=== PATIENT | female | born 1970 | race African-American/Black ===

== ENCOUNTER 2019-05-07 18:52 | Inpatient (IN) | payer BC, OTHER ==
[2019-05-07] MEDS ORDERED: SODIUM CHLORIDE 0.9% 500 ML 500 ML IV STA (20:41)
[2019-05-07] MEDS ORDERED: KETOROLAC 30 MG/ML 1 ML VIAL IVP STA (20:41)
[2019-05-07 20:47] LABS: Appearance,Urine Clear (Clear); Bilirubin,Urine Negative (Negative); Blood,Urine Negative (Negative); Color,Urine Colorless; Glucose,Urine (UA) Negative (Negative); Ketones,Urine Negative (Negative); Leukocyte Esterase,Urine Negative (Negative); Nitrite,Urine Negative (Negative); PH, Urine 5.5 (5.0-8.0); Protein,Urine Negative (Negative); Specific Gravity,Urine 1.003 (1.001-1.035); Urobilinogen,Urine <2.0 mg/dL (<2.0)
--- NOTE | 2019-05-07 20:56 | ED ---
General Adult HPI - General Chief complaint: Urogenital Stated complaint: Poss UTI or kidney infection Time Seen by Provider: 05/07/19 20:11 Source: patient, RN notes reviewed Mode of arrival: ambulatory Limitations: no limitations - History of Present Illness Initial comments: 49-year-old female without any significant past medical history presents to the emergency department for right flank pain 4 days. States that she was seen at urgent care at that time and diagnosed with a urinary tract infection secondary to having blood in her urine and started on Bactrim. States that this has not helped with her pain. Patient denies any dysuria or suprapubic pain or pressure. Denies fevers or chills. Does admit to right flank pain that comes and goes. States when she is working this worsens her pain.Patient has no other complaints at this time including shortness of breath, chest pain, abdominal pain, nausea or vomiting, headache, or visual changes. - Related Data Previous Rx's Medication Instructions Recorded Ibuprofen [Motrin] 600 mg PO Q6HR PRN #20 tab 07/04/14 Allergies Allergy/AdvReac Type Severity Reaction Status Date / Time peanut Allergy Rash/Hives Verified 05/07/19 19:00 wheat Allergy Abdominal Verified 05/07/19 19:00 Pain Review of Systems ROS Statement: Those systems with pertinent positive or pertinent negative responses have been documented in the HPI. ROS Other: All systems not noted in ROS Statement are negative. Past Medical History Past Medical History: No Reported History History of Any Multi-Drug Resistant Organisms: None Reported Past Surgical History: No Surgical Hx Reported Past Psychological History: No Psychological Hx Reported Smoking Status: Former smoker Past Alcohol Use History: Occasional Past Drug Use History: None Reported General Exam Limitations: no limitations General appearance: alert, in no apparent distress Head exam: Present: atraumatic, normocephalic, normal inspection Eye exam: Present: normal appearance, PERRL, EOMI. Absent: scleral icterus, conjunctival injection, periorbital swelling ENT exam: Present: normal exam, mucous membranes moist Neck exam: Present: normal inspection, full ROM. Absent: tenderness, meningismus, lymphadenopathy Respiratory exam: Present: normal lung sounds bilaterally. Absent: respiratory distress, wheezes, rales, rhonchi, stridor Cardiovascular Exam: Present: regular rate, normal rhythm, normal heart sounds. Absent: systolic murmur, diastolic murmur, rubs, gallop, clicks GI/Abdominal exam: Present: soft, normal bowel sounds. Absent: distended, tende rness, guarding, rebound, rigid Back exam: Absent: CVA tenderness (R), CVA tenderness (L), vertebral tenderness Course Vital Signs 05/07/19 05/07/19 18:57 22:45 Temperature 98 F 98 F Pulse Rate 79 68 Respiratory 18 18 Rate Blood Pressure 156/77 129/72 O2 Sat by Pulse 100 100 Oximetry Medical Decision Making - Medical Decision Making Vitals are stable. However CBC did reveal hemoglobin of 6.3. This was repeated and is now 6.5. At this time unclear what source of anemia is. Does admit she has a history of mild anemia however past hemoglobins have been in normal limits. Patient admits to some history of mild anemia for which she takes vitamin D. States that she had her last period on April 21 and it was not heavy in nature. No current vaginal bleeding. Denies any rectal bleeding, melena, hematochezia. Denies hematemesis. Patient was ordered a unit of packed red blood cells. CMP unremarkable. Urine was negative. CT was obtained which showed an enlarged multilobulated uterus and periumbilical fullness, no kidney stone. Patient will be admitted, agrees with this. - Lab Data Result diagrams: 05/07/19 22:00 05/07/19 20:50 Lab Results 05/07/19 05/07/19 05/07/19 Range/Units 20:22 20:22 20:50 WBC (3.8-10.6) k/uL RBC (3.80-5.40) m/uL Hgb (11.4-16.0) gm/dL Hct (34.0-46.0) % MCV (80.0-100.0) fL MCH (25.0-35.0) pg MCHC (31.0-37.0) g/dL RDW (11.5-15.5) % Plt Count (150-450) k/uL Neutrophils % % Lymphocytes % % Monocytes % % Eosinophils % % Basophils % % Neutrophils # (1.3-7.7) k/uL Lymphocytes # (1.0-4.8) k/uL Monocytes # (0-1.0) k/uL Eosinophils # (0-0.7) k/uL Basophils # (0-0.2) k/uL Hypochromasia Poikilocytosis Anisocytosis Microcytosis Sodium 135 L (137-145) mmol/L Potassium 3.7 (3.5-5.1) mmol/L Chloride 103 (98-107) mmol/L Carbon Dioxide 21 L (22-30) mmol/L Anion Gap 11 mmol/L BUN 8 (7-17) mg/dL Creatinine 0.86 (0.52-1.04) mg/dL Est GFR (CKD-EPI)AfAm >90 (>60 ml/min/1.73 sqM) Est GFR (CKD-EPI)NonAf 80 (>60 ml/min/1.73 sqM) Glucose 83 (74-99) mg/dL Calcium 11.0 H (8.4-10.2) mg/dL Total Bilirubin 0.5 (0.2-1.3) mg/dL AST 20 (14-36) U/L ALT 15 (9-52) U/L Alkaline Phosphatase 50 (38-126) U/L Total Protein 7.6 (6.3-8.2) g/dL Albumin 4.3 (3.5-5.0) g/dL Amylase 57 (30-110) U/L Lipase 106 (23-300) U/L Urine Color Colorless Urine Appearance Clear (Clear) Urine pH 5.5 (5.0-8.0) Ur Specific [place] 1.003 (1.001-1.035) Urine Protein Negative (Negative) Urine Glucose (UA) Negative (Negative) Urine Ketones Negative (Negative) Urine Blood Negative (Negative) Urine Nitrite Negative (Negative) Urine Bilirubin Negative (Negative) Urine Urobilinogen <2.0 (<2.0) mg/dL Ur Leukocyte Esterase Negative (Negative) Urine HCG, Qual Not Detected (Not Detectd) Blood Type Recheck Bld Type Recheck Status Spec Expiration Date 05/07/19 05/07/19 05/07/19 Range/Units 20:50 22:00 22:05 WBC 6.7 6.2 (3.8-10.6) k/uL RBC 3.16 L 3.12 L (3.80-5.40) m/uL Hgb 6.3 L* 6.5 L* (11.4-16.0) gm/dL Hct 23.5 L 23.4 L (34.0-46.0) % MCV 74.3 L 75.0 L (80.0-100.0) fL MCH 19.9 L 20.9 L (25.0-35.0) pg MCHC 26.7 L 27.8 L (31.0-37.0) g/dL RDW 17.1 H 17.3 H (11.5-15.5) % Plt Count 514 H 467 H (150-450) k/uL Neutrophils % 75 75 % Lymphocytes % 17 16 % Monocytes % 4 5 % Eosinophils % 1 1 % Basophils % 1 1 % Neutrophils # 5.1 4.6 (1.3-7.7) k/uL Lymphocytes # 1.1 1.0 (1.0-4.8) k/uL Monocytes # 0.3 0.3 (0-1.0) k/uL Eosinophils # 0.0 0.1 (0-0.7) k/uL Basophils # 0.1 0.1 (0-0.2) k/uL Hypochromasia Marked Marked Poikilocytosis Slight Slight Anisocytosis Slight Slight Microcytosis Moderate Slight Sodium (137-145) mmol/L Potassium (3.5-5.1) mmol/L Chloride (98-107) mmol/L Carbon Dioxide (22-30) mmol/L Anion Gap mmol/L BUN (7-17) mg/dL Creatinine (0.52-1.04) mg/dL Est GFR (CKD-EPI)AfAm (>60 ml/min/1.73 sqM) Est GFR (CKD-EPI)NonAf (>60 ml/min/1.73 sqM) Glucose (74-99) mg/dL Calcium (8.4-10.2) mg/dL Total Bilirubin (0.2-1.3) mg/dL AST (14-36) U/L ALT (9-52) U/L Alkaline Phosphatase (38-126) U/L Total Protein (6.3-8.2) g/dL Albumin (3.5-5.0) g/dL Amylase (30-110) U/L Lipase (23-300) U/L Urine Color Urine Appearance (Clear) Urine pH (5.0-8.0) Ur Specific [place] (1.001-1.035) Urine Protein (Negative) Urine Glucose (UA) (Negative) Urine Ketones (Negative) Urine Blood (Negative) Urine Nitrite (Negative) Urine Bilirubin (Negative) Urine Urobilinogen (<2.0) mg/dL Ur Leukocyte Esterase (Negative) Urine HCG, Qual (Not Detectd) Blood Type Recheck No Previous Record Bld Type Recheck Status CABO Indicated Spec Expiration Date 05/10/2019 - 2304 Disposition Clinical Impression: Anemia Disposition: ADMITTED IP TO THIS HOSP Condition: Fair Is patient prescribed a controlled substance at d/c from ED?: No Referrals: Allan Ramirez MD [Primary Care Provider] - 1-2 days Time of Disposition: 22:52
[2019-05-07 21:14] LABS: ALT 15 U/L (9-52); AST 20 U/L (14-36); African American GFR (CKD) >90 (>60 ml/min/1.73 sqM); Albumin 4.3 g/dL (3.5-5.0); Alkaline Phosphatase 50 U/L (38-126); Amylase 57 U/L (30-110); Anion Gap 11 mmol/L; Blood Urea Nitrogen 8 mg/dL (7-17); Carbon Dioxide 21 mmol/L (22-30); Chloride 103 mmol/L (98-107); Glucose 83 mg/dL (74-99); Non-African American GFR(CKD) 80 (>60 ml/min/1.73 sqM); Potassium 3.7 mmol/L (3.5-5.1); Sodium 135 mmol/L (137-145); Total Bilirubin 0.5 mg/dL (0.2-1.3); Total Protein 7.6 g/dL (6.3-8.2)
[2019-05-07 21:33] LABS: Anisocytosis Slight; Basophils # (A) 0.1 k/uL (0-0.2); Basophils % (A) 1 %; Eosinophils % (A) 1 %; HCT 23.5 % (34.0-46.0); Hypochromasia Marked; Lymphocytes # (A) 1.1 k/uL (1.0-4.8); Lymphocytes % (A) 17 %; MCH 19.9 pg (25.0-35.0); MCHC 26.7 g/dL (31.0-37.0); MCV 74.3 fL (80.0-100.0); Mean Platelet Volume 6.8; Microcytosis Moderate; Monocytes # (A) 0.3 k/uL (0-1.0); Monocytes % (A) 4 %; Neutrophils # (A) 5.1 k/uL (1.3-7.7); Neutrophils % (A) 75 %; Platelet Count 514 k/uL (150-450); Poikilocytosis Slight; RBC 3.16 m/uL (3.80-5.40); RDW 17.1 % (11.5-15.5); WBC 6.7 k/uL (3.8-10.6)
[2019-05-07 21:36] LABS: HGB 6.3 gm/dL (11.4-16.0)
--- NOTE | 2019-05-07 21:52 | CT ---
EXAMINATION TYPE: CT abdomen pelvis w con DATE OF EXAM: 05/07/2019 COMPARISON: None HISTORY: right flank pain CT DLP: 568.5 mGycm Automated exposure control for dose reduction was used. TECHNIQUE: Helical acquisition of images was performed from the lung bases through the pelvis. CONTRAST: Performed without Oral Contrast and with IV Contrast, patient injected with 100 mL of Isovu e 300. FINDINGS: LUNG BASES: No significant abnormality is appreciated. LIVER/GB: No significant abnormality is appreciated. PANCREAS: No significant abnormality is seen. SPLEEN: No significant abnormality is seen. ADRENALS: No significant abnormality is seen. KIDNEYS: No significant abnormality is seen. FREE AIR: No free air is visualized. RETROPERITONEAL ADENOPATHY: None visualized REPRODUCTIVE ORGANS: The uterus is very multilobulated, consistent with leiomyomata, and measures 14 x 10 x 8 cm. The right ovary is lowly-positioned at the underside of the uterus, whereas the left ova ry is high atop the uterus. URINARY BLADDER: No significant abnormality is seen. PELVIC ADENOPATHY: None visualized. OSSEOUS STRUCTURES: No significant abnormality is seen. BOWEL: No significant abnormality is seen. Appendix is negative. VASCULATURE: Unremarkable. OTHER: There is periumbilical fullness, with a small bowel loop reaching a position partially 1 cm fr om the skin surface. No cadence herniation. IMPRESSION: 1. ENLARGED MULTILOBULATED UTERUS. 2. PERIUMBILICAL FULLNESS DISCUSSED.
[2019-05-07 22:26] LABS: Anisocytosis Slight; Basophils # (A) 0.1 k/uL (0-0.2); Basophils % (A) 1 %; Eosinophils # (A) 0.1 k/uL (0-0.7); Eosinophils % (A) 1 %; HCT 23.4 % (34.0-46.0); Hypochromasia Marked; Lymphocytes % (A) 16 %; MCH 20.9 pg (25.0-35.0); MCHC 27.8 g/dL (31.0-37.0); Mean Platelet Volume 6.5; Microcytosis Slight; Monocytes # (A) 0.3 k/uL (0-1.0); Monocytes % (A) 5 %; Neutrophils # (A) 4.6 k/uL (1.3-7.7); Neutrophils % (A) 75 %; Platelet Count 467 k/uL (150-450); Poikilocytosis Slight; RBC 3.12 m/uL (3.80-5.40); RDW 17.3 % (11.5-15.5); WBC 6.2 k/uL (3.8-10.6)
[2019-05-07 22:40] LABS: HGB 6.5 gm/dL (11.4-16.0)
[2019-05-07] MEDS ORDERED: NALOXONE 0.4 MG/ML 1 ML VIAL IV PRN (22:49)
[2019-05-07] MEDS ORDERED: MORPHINE SULFATE 2 MG/ML SYRINGE IV PRN (22:49)
[2019-05-07] MEDS ORDERED: ONDANSETRON 4 MG/2 ML VIAL IVP PRN (22:49)
[2019-05-07] MEDS ORDERED: SODIUM CHLORIDE 0.9% 1,000 ML IV SCH (23:00)
[2019-05-08 08:58] LABS: Anisocytosis Slight; Basophils # (A) 0.1 k/uL (0-0.2); Basophils % (A) 1 %; Eosinophils % (A) 1 %; HCT 24.7 % (34.0-46.0); HGB 7.3 gm/dL (11.4-16.0); Hypochromasia Marked; Lymphocytes % (A) 20 %; MCH 22.7 pg (25.0-35.0); MCHC 29.5 g/dL (31.0-37.0); MCV 76.8 fL (80.0-100.0); Mean Platelet Volume 7.1; Microcytosis Slight; Monocytes # (A) 0.4 k/uL (0-1.0); Monocytes % (A) 8 %; Neutrophils # (A) 3.3 k/uL (1.3-7.7); Neutrophils % (A) 67 %; Platelet Count 426 k/uL (150-450); Poikilocytosis Moderate; RBC 3.22 m/uL (3.80-5.40); RDW 16.9 % (11.5-15.5); WBC 4.9 k/uL (3.8-10.6)
[2019-05-08 11:30] LABS: INR 0.9 (<1.2); Prothrombin Time 10.2 sec (9.0-12.0)
[2019-05-08 11:33] LABS: Partial Thromboplastin Time 20.2 sec (22.0-30.0)
[2019-05-08] MEDS: ENOXAPARIN 40 MG/0.4 ML SYRINGE SQ SCH (13:15)
[2019-05-08] MEDS: LACTATED RINGERS 1,000 ML IV SCH ×2 (13:15→20:46)
[2019-05-08] MEDS ORDERED: PEG 3350-NA SULF,BICARB,CL/KCL 4,000 ML BOTTLE PO ONE (17:00)
--- NOTE | 2019-05-08 18:27 | CONS ---
CONSULTATION REASON FOR CONSULTATION: Severe symptomatic anemia. HISTORY OF PRESENT ILLNESS: The patient is a 49-year-old female admitted to the hospital because of fatigue, weakness, and some right-sided abdominal pain for the last 1 week duration. She came to the emergency room and she was noted to have severe symptomatic anemia with a hemoglobin of 6.5 g/dL and received 2 units of blood transfusion. The patient denies any abdominal pain. No nausea, vomiting. She usually takes 1 or 2 Aleve on a regular basis for arthritis symptoms. She has noted some constipation for the last few months. Her mother was diagnosed with colon cancer at age 71. She never had any EGD or colonoscopy in the past. No prior history of peptic ulcer disease or recent NSAID use. She still has her regular periods, but denies any menorrhagia. She states that her last menstrual cycle was slightly prolonged, but she does not think she had heavy bleeding or clots. PAST MEDICAL HISTORY: None. MEDICATIONS: Prior to hospitalization, Aleve as needed. ALLERGIES: No known drug allergies. SOCIAL HISTORY: Former smoker. No alcohol use. FAMILY HISTORY: Mother was diagnosed with colon cancer at age 71. PAST SURGICAL HISTORY: Unremarkable. REVIEW OF SYSTEMS: CARDIOPULMONARY: She denies any chest pain, shortness of breath. No dysuria hematuria. MUSCULOSKELETAL unremarkable. SKIN unremarkable. ENDOCRINE unremarkable. PSYCHIATRIC unremarkable. NEUROLOGY unremarkable. ENT/vision unremarkable. CONSTITUTIONAL: No recent weight loss. No fevers, chills, night sweats. GI as mentioned above. HEMATOLOGY: Severe symptomatic anemia. ENDOCRINE unremarkable. PHYSICAL EXAMINATION: She appears comfortable. No apparent distress. Vital signs stable. Blood pressure is 132/86, pulse rate 68, temperature 98.4. HEENT examination unremarkable. Conjunctivae pink. Sclerae anicteric. Oral cavity no lesions. NECK: No JVD or lymph node enlargement. CHEST: Clear to auscultation. HEART: Regular rate and rhythm. ABDOMEN: Soft. Bowel sounds are positive. No organomegaly. EXTREMITIES: No pedal edema. SKIN no rashes. NEUROLOGIC: Alert and oriented x3. No focal deficits. LABS: WBC 6.7, hemoglobin 6.3, platelets 514, MCV 74. INR 0.9. Basic metabolic panel is within normal limits. IMPRESSION: Severe symptomatic microcytic hypochromic anemia with a hemoglobin of 6.5, consistent with iron deficiency anemia most likely related to occult gastrointestinal blood loss. The patient denies any specific gastrointestinal symptoms other than occasional right- sided abdominal pain and some constipation. She denies any menorrhagia. She did have a CT of the abdomen and pelvis done yesterday that showed a multilobulated uterus suggestive of uterine fibroids. She does have family history of colon cancer diagnosed in her mother at age 71. RECOMMENDATIONS: 1. We will proceed with an EGD colonoscopy tomorrow. I discussed with the patient risks, benefits, and complications of procedure and she is agreeable to it. 2. In the meantime, monitor CBC on a daily basis. 3. Avoid NSAIDs. 4. Further recommendations will follow based on the endoscopy results. Thank you for this consultation. MMODL / IJN: [id number] /
[2019-05-08 18:53] LABS: Ferritin 3.4 ng/mL (10.0-291.0); Iron Saturation 1.9 (12.00-45.00)
--- NOTE | 2019-05-08 20:30 | P.HPIM ---
History of Present Illness H&P Date: 05/08/19 Chief Complaint: Right flank pain History of presenting complaint: This is a pleasant 49-year-old patient of Dr. Allan Ramirez. 3 days ago patient developed right flank pain with some pain shooting hiatal. Patient had some associated chills. No fever as such. No nausea vomiting. Patient went out to the urgent care. She was told she has some blood in her urine. Was prescribed Bactrim. Today for couple of days but without much help. Decided to come into the ER. Patient's out of her hemoglobin was 6.9. Was given a unit of blood. Patient denies any dark or black stools. Her last menstrual period was heavy. Otherwise is regular. Patient not had any female genitourinary checkup and last few years. Patient does has no gross hematuria. Rest for the patient this morning. No further flank pain. No fever no chills. No urinary symptoms. Computed tomography scan done in the ER did not show any obvious stone. Review of systems: GEN.: Chills EYES: None HEENT: None NECK: None RESPIRATORY: None CARDIOVASCULAR: None GASTROINTESTINAL: None GENITOURINARY: as above MUSCULOSKELETAL: None LYMPHATICS: None HEMATOLOGICAL: None PSYCHIATRY: None NEUROLOGICAL: None Past medical history: Unremarkable Social history: . Works in aerospace quality engineer. No smoking or cord. No recreational drugs. Family history: Reviewed, noncontributory to presentation Physical examination: VITAL SIGNS: 98, 79, 18, 129/72, 100% room air GENERAL: BMI 23.4, sitting up blood in distress. EYES: Pupils equal. Conjunctiva normal. HEENT: External appearance of nose and ears normal, oral cavity grossly normal. NECK: JVD not raised; masses not palpable. HEART: First and second heart sounds are normal; no edema. LUNGS: Respiratory rate normal; clear to auscultation. ABDOMEN: Soft, nontender, liver spleen not palpable, no masses palpable. PSYCH: Alert and oriented x3; mood and affect normal. NEUROLOGICAL: Cranial nerves grossly intact; no facial asymmetry, power and sensation grossly intact. LYMPHATICS: No lymph nodes palpable in the axilla and neck INVESTIGATIONS, reviewed in the clinical context: White count 6.7 hemoglobin 6.3 platelets 514 progression 3.7 Creatinine 0.86 iron 9 TIBC high at 433-saturation low at 1.9 ferritin low at 3.4 CT abdomen-enlarged uterus, with findings of leiomyoma Assessment: -Acute right flank pain, in a patient with chills with suspect underlying early polynephritis. Patient had a urine tested as an outpatient but did show some blood in it. Patient was at 2 days of antibiotics that is Bactrim. That could possibly make her current urine negative. It is possible she has a right kidney radiolucent stone. -Acute symptomatic microcytic anemia with iron deficiency. This could be from menorrhagia, need to be rule out GI bleed. -Uterine leiomyoma, to follow-up with [facility] Plan: Given the history of a lump at least put the patient 1 day of IV ceftriaxone. GI was consulted. Dr. Victoria saw the patient, this afternoon. and decided to proceed with EGD and colonoscopy. Discussed with the patient. We'll follow up with [facility] as an outpatient. Did receive a unit of blood earlier. Care was discussed with the patient. Questions answered. Past Medical History Past Medical History: No Reported History History of Any Multi-Drug Resistant Organisms: None Reported Past Surgical History: No Surgical Hx Reported Past Psychological History: No Psychological Hx Reported Smoking Status: Former smoker Past Alcohol Use History: Occasional Past Drug Use History: None Reported Medications and Allergies Home Medications Medication Instructions Recorded Confirmed Type Cefuroxime Axetil [Ceftin] 500 mg PO BID #10 tab 05/08/19 Rx Cetirizine HCl [Zyrtec] 10 mg PO DAILY 05/08/19 05/08/19 History Allergies Allergy/AdvReac Type Severity Reaction Status Date / Time peanut Allergy Rash/Hives Verified 05/07/19 19:00 wheat Allergy Abdominal Verified 05/07/19 19:00 Pain Physical Exam Vitals: Vital Signs Temp Pulse Resp BP Pulse Ox 05/07/19 22:45 98 F 68 18 129/72 100 05/07/19 18:57 98 F 79 18 156/77 100 Intake and Output 05/07/19 05/08/19 05/08/19 22:59 06:59 14:59 Other: Voiding Method Toilet Weight 58.06 kg Results CBC & Chem 7: 05/08/19 07:58 05/07/19 20:50 Labs: Abnormal Lab Results - Last 24 Hours (Table) 05/07/19 05/07/19 05/07/19 Range/Units 20:50 20:50 22:00 RBC 3.16 L 3.12 L (3.80-5.40) m/uL Hgb 6.3 L* 6.5 L* (11.4-16.0) gm/dL Hct 23.5 L 23.4 L (34.0-46.0) % MCV 74.3 L 75.0 L (80.0-100.0) fL MCH 19.9 L 20.9 L (25.0-35.0) pg MCHC 26.7 L 27.8 L (31.0-37.0) g/dL RDW 17.1 H 17.3 H (11.5-15.5) % Plt Count 514 H 467 H (150-450) k/uL Sodium 135 L (137-145) mmol/L Carbon Dioxide 21 L (22-30) mmol/L Calcium 11.0 H (8.4-10.2) mg/dL Crossmatch 05/07/19 05/08/19 Range/Units 22:05 07:58 RBC 3.22 L (3.80-5.40) m/uL Hgb 7.3 L (11.4-16.0) gm/dL Hct 24.7 L (34.0-46.0) % MCV 76.8 L (80.0-100.0) fL MCH 22.7 L (25.0-35.0) pg MCHC 29.5 L (31.0-37.0) g/dL RDW 16.9 H (11.5-15.5) % Plt Count (150-450) k/uL Sodium (137-145) mmol/L Carbon Dioxide (22-30) mmol/L Calcium (8.4-10.2) mg/dL Crossmatch See Detail
[2019-05-08] MEDS: ACETAMINOPHEN TAB 325 MG TAB PO PRN (20:51)
[2019-05-09] MEDS: ACETAMINOPHEN TAB 325 MG TAB PO PRN (01:01)
[2019-05-09 04:38] VITALS: RESP 16
[2019-05-09] MEDS: LACTATED RINGERS 1,000 ML IV SCH (06:04)
[2019-05-09 09:27] LABS: Anisocytosis Slight; HCT 23.8 % (34.0-46.0); Hypochromasia Marked; MCH 21.6 pg (25.0-35.0); MCHC 28.2 g/dL (31.0-37.0); MCV 76.8 fL (80.0-100.0); Mean Platelet Volume 7.1; Microcytosis Slight; Platelet Count 412 k/uL (150-450); Poikilocytosis Moderate; RDW 17.3 % (11.5-15.5); WBC 3.7 k/uL (3.8-10.6)
[2019-05-09] MEDS: ENOXAPARIN 40 MG/0.4 ML SYRINGE SQ SCH (09:28)
[2019-05-09 09:39] LABS: HGB 6.7 gm/dL (11.4-16.0)
[2019-05-09] MEDS ORDERED: LIDOCAINE 1% INJ 10MG/ML (20 ML MDV) ONE (12:19)
[2019-05-09] MEDS ORDERED: PROPOFOL 10 MG/ML 20 ML VIAL IV ONE (12:19)
[2019-05-09] MEDS ORDERED: IV FLUID CONTINUATION 500 ML IV ONE (12:26)
[2019-05-09] MEDS ORDERED: PANTOPRAZOLE 40 MG TABLET PO STA (12:44)
--- NOTE | 2019-05-09 12:44 | P.PCN ---
Date of Procedure: 05/09/19 Procedure(s) Performed: Brief history: Patient is a pleasant 49-year-old female, scheduled for an elective upper endoscopy as well as colonoscopy as a part of evaluation of I deficiency anemia. She was admitted hospital with severe symptomatic anemia and hemoglobin of 6.5 g/dL and severe microcytosis. She takes Aleve on a regular basis. She denies any GI bleed. Procedure performed: Esophagogastroduodenoscopy with biopsy Colonoscopy Preoperative diagnosis: Severe symptomatic microcytic anemia Anesthesia: MAC Procedure: After informed consent was obtained from the patient was brought into the endoscopy unit and IV sedation was administered by anesthesia under continuous monitoring. Initially upper endoscopy was done. The Olympus GF 160 video endoscope was inserted inserted into the mouth and esophagus intubated without any difficulty and was gradually advanced into the stomach and duodenum and carefully examined. The bulb and second part of the duodenum appeared normal. Abscesses were done from the duodenum to rule out celiac disease. The scope was then withdrawn into the stomach adequately insufflated with air and upon careful examination the antrum had several erosions and 2 small deep ulcerations and multiple biopsies were done from this area. The body, cardia and fundus appeared normal. The scope was then withdrawn into the esophagus. The GE junction was located at 40 cm to the incisors. Small sliding type hiatal hernia noted. It appeared regular with no erythema erosions or ulcerations. Rest of the esophagus appeared normal. Patient tolerated the procedure well. At this time the patient continued to remain sedation. Initial digital rectal examination was normal. Olympus CF 160 video colonoscope was th erted into the rectum and gradually advanced to the cecum without any difficulty. Careful examination was performed as the scope was gradually being withdrawn. The prep was excellent. The cecum, ascending colon, transverse colon, descending colon, sigmoid colon and rectum appeared normal. Retroflexion was performed in the rectum and no lesions were noted. Patient tolerated the procedure well. Impression: 1. Upper endoscopy revealed 2 small deep antral ulcerations measuring 5 and 6 cm in size with severe antral erosive gastritis and small hiatal hernia 2. Colonoscopy was essentially within normal limits with no evidence of colitis or colorectal neoplasia Recommendations: Findings of this examination were discussed with the patient as well as her family. She was advised to avoid NSAIDs. She'll be started on Protonix 40 mg daily and iron supplements 1 tablet twice daily. Diet will be advanced as nadege ated.]
[2019-05-09 13:10] LABS: Haptoglobin 65.3 mg/dL (31.2-198.0)
[2019-05-09 13:20] VITALS: BP 133/85; PULSE 74; TEMP 98.3
--- NOTE | 2019-05-09 23:23 | P.DS ---
Providers Date of admission: 05/07/19 22:54 Expected date of discharge: 05/09/19 Attending physician: Pavel Son Consults: 05/08/19 07:41 Consult Physician Routine Consulting Provider: Alexis Vergara Consult Reason/Comments: Low HGB Do you want consulting provider notified?: Yes Primary care physician: Allan Ramirez [place] Hospital Course: Chief Complaint: Right flank pain Hospital course: This is a pleasant 49-year-old patient of Dr. Allan Ramirez. 3 days ago patient developed right flank pain with some pain shooting hiatal. Patient had some associated chills. No fever as such. No nausea vomiting. Patient went out to the urgent care. She was told she has some blood in her urine. Was prescribed Bactrim. Today for couple of days but without much help. Decided to come into the ER. Patient's out of her hemoglobin was 6.9. Was given a unit of blood. Patient denies any dark or black stools. Her last menstrual period was heavy. Otherwise is regular. Patient not had any female genitourinary checkup and last few years. Patient does has no gross hematuria. Rest for the patient this morning. No further flank pain. No fever no chills. No urinary symptoms. Computed tomography scan done in the ER did not show any obvious stone. Patient is empirically treated for maybe low-grade pyelonephritis. It may be noted that patient had no white count or fever. Patient's initial hemoglobin was 6.3. Patient was given 2 units of blood. Hemoglobin did come up to 6.7. EGD was done by Dr. Victoria. Found to have severe antral erosive gastritis and small hiatal hernia. Also 2 small deep antral ulcerations. Patient does take NSAIDs. [place] to be responsible for the same. Patient will follow with Dr. Marcin Stephens in the office. If need be that she'll follow-up with hematology. She also told to follow with gynecology for her enlarged uterus. Care was discussed at length with the patient today and with Dr. Marcin Stephens. Discussion and discharge planning more than 35 minutes Consultation: Dr. Marcin Stephens from GI Physical examination: VITAL SIGNS: 98.3, 74, 60, 133 bradycardia 5, 100% room air GENERAL: Sitting up, comfortable. EYES: Pupils equal. Conjunctiva pale HEENT: External appearance of nose and ears normal, oral cavity grossly normal. NECK: JVD not raised; masses not palpable. HEART: First and second heart sounds are normal; no edema. LUNGS: Respiratory rate normal; clear to auscultation. ABDOMEN: Soft, nontender, liver spleen not palpable, no masses palpable. PSYCH: Alert and oriented x3; mood and affect normal. INVESTIGATIONS, reviewed in the clinical context: Hemoglobin 6.7 White count 6.7 hemoglobin 6.3 platelets 514 potassium 3.7 Creatinine 0.86 iron 9 TIBC high at 433-saturation low at 1.9 ferritin low at 3.4 CT abdomen-enlarged uterus, with findings of leiomyoma Discharge diagnosis: -Acute right flank pain, in a patient with chills with suspect underlying early polynephritis. Patient had a urine tested as an outpatient but did show some blood in it. Patient was at 2 days of antibiotics that is Bactrim. That could possibly make her current urine negative. It is possible she has a right kidney radiolucent stone. -Acute symptomatic microcytic anemia with iron deficiency. -Requiring 2 units of blood from GI bleed -Severe antral erosive gastritis from NSAIDs -2 small deep gastric antral ulcerations secondary to NSAIDs. -Uterine leiomyoma, to follow-up with [facility] Disposition: DC home Patient Condition at Discharge: Stable Plan - Discharge Summary New Discharge Prescriptions: New Cefuroxime Axetil [Ceftin] 500 mg PO BID #10 tab Ferrous Sulfate [Iron (65 MG Elemental)] 325 mg PO TID #90 tab Omeprazole [PriLOSEC] 20 mg PO AC-BID #60 cap Acetaminophen Tab [Tylenol] 650 mg PO Q4HR PRN tab PRN Reason: Fever And/ Or Pain Continue Cetirizine HCl [Zyrtec] 10 mg PO DAILY Discontinued Sulfamethox-Tmp 800-160Mg [Bactrim DS 800-160 mg] 1 tab PO BID Discharge Medication List Cefuroxime Axetil [Ceftin] 500 mg PO BID #10 tab 05/08/19 [Rx] Cetirizine HCl [Zyrtec] 10 mg PO DAILY 05/08/19 [History] Acetaminophen Tab [Tylenol] 650 mg PO Q4HR PRN tab 05/09/19 [Rx] Ferrous Sulfate [Iron (65 MG Elemental)] 325 mg PO TID #90 tab 05/09/19 [Rx] Omeprazole [PriLOSEC] 20 mg PO AC-BID #60 cap 05/09/19 [Rx] Follow up Appointment(s)/Referral(s): Rahul Gray DO [Doctor of Osteopathic Medicine] - 1 Week (Patient to call and schedule appointment with Dr. Gray. Patient will be a new patient and the office has questions for you.) Allan Ramirez MD [Primary Care Provider] - 05/13/19 2:45 pm Jessa Stephens MD [STAFF PHYSICIAN] - 05/23/19 1:00 pm (Patient to arrive at Dr. Stpehens's office at 12:30 pm to fill out paperwork. Please bring insurance cards and drivers license with you to your appointment.) Ambulatory/Diagnostic Orders: Complete Blood Count w/diff [LAB.AMB] Time Frame: 1 Week, Location: None Selected Patient Instructions/Handouts: Cefuroxime (By mouth), Iron Supplements (By mouth), Omeprazole (By mouth), Anemia (DC) Discharge/Stand Alone Forms: Work/School Release / Restrict Discharge Disposition: HOME SELF-CARE
== END 2019-05-09 17:25 | disposition home or self-care (01) | DRG 378 ==
LOC: EC 18:52 → 3NMEDONC 22:54
PROVIDERS: ADMIT Hospitalist; ATTEND Hospitalist
PROC: 30233N1 Transfusion of Nonautologous Red Blood Cells into Peripheral Vein, Percutaneous Approach (ICD-10-PCS; 2019-05-08)
PROC: 0DJD8ZZ Inspection of Lower Intestinal Tract, Via Natural or Artificial Opening Endoscopic (ICD-10-PCS; 2019-05-09)
PROC: 0DB98ZX Excision of Duodenum, Via Natural or Artificial Opening Endoscopic, Diagnostic (ICD-10-PCS; principal; 2019-05-09 07:30)
PROC: 0DB78ZX Excision of Stomach, Pylorus, Via Natural or Artificial Opening Endoscopic, Diagnostic (ICD-10-PCS; 2019-05-09 07:30)
DX: K25.4 Chronic or unspecified gastric ulcer with hemorrhage (principal); N12 Tubulo-interstitial nephritis, not specified as acute or chronic; K29.60 Other gastritis without bleeding; K44.9 Diaphragmatic hernia without obstruction or gangrene; D25.9 Leiomyoma of uterus, unspecified; D50.9 Iron deficiency anemia, unspecified; K59.00 Constipation, unspecified; M19.90 Unspecified osteoarthritis, unspecified site; T39.395A Adverse effect of other nonsteroidal anti-inflammatory drugs [NSAID], initial encounter; Z80.0 Family history of malignant neoplasm of digestive organs; Z87.891 Personal history of nicotine dependence
CPT/HCPCS: 36415; 43239; 45378; 74177; 80053; 81003; 81025; 82150; 82607; 82728; 83010; 83540; 83550; 83690; 84443; 85025; 85027; 85610; 85730; 86850; 86880; 86900; 86901; 86920; 88305; 96361; 96374; 99285

== ENCOUNTER 2019-05-10 18:31 | Emergency (ER) | payer OTHER ==
[2019-05-10 18:44] VITALS: TEMP 98
[2019-05-10] MEDS ORDERED: SODIUM CHLORIDE 0.9% 1,000 ML IV STA (19:26)
--- NOTE | 2019-05-10 19:45 | ED ---
General Adult HPI - General Chief complaint: Recheck/Abnormal Lab/Rx Stated complaint: light headed and back pain Source: patient, family, RN notes reviewed, old records reviewed Mode of arrival: ambulatory Limitations: no limitations - History of Present Illness Initial comments: Chief complaint and history of present illness this is a 49-year-old female here with her significant other. The patient was recently discharged from the hospital. It was found that she had a hemoglobin approximate 6.8 to received 1 unit of blood. She had colonoscopy and endoscopy which showed evidence of 3 stomach ulcers. The patient's on medications for that. The patient was hydrated while in the hospital. She was discharged with a hemoglobin of 7.3. The patient states that when bending over today she felt dizzy. She did not pass out herself. She denied an ongoing chronic discomfort on the right flank area for which she was initially started on treatment and she continues to be taking antibiotics. Patient had one episode of diarrhea. Patient otherwise denying headache nausea vomiting chest pain or shortness of breath no neuro deficits. This occurred when she bent over. No evidence of any focal or lateralizing neurological issues. - Related Data Previous Rx's Medication Instructions Recorded Cefuroxime Axetil [Ceftin] 500 mg PO BID #10 tab 05/08/19 Ferrous Sulfate [Iron (65 MG 325 mg PO TID #90 tab 05/09/19 Elemental)] Omeprazole [PriLOSEC] 20 mg PO AC-BID #60 cap 05/09/19 Acetaminophen with Codeine 1 tab PO Q6H PRN 3 Days #12 tab 05/10/19 [Tylenol w/codeine #3] Allergies Allergy/AdvReac Type Severity Reaction Status Date / Time peanut Allergy Rash/Hives Verified 05/10/19 19:13 wheat Allergy Abdominal Verified 05/10/19 19:13 Pain Review of Systems ROS Statement: Those systems with pertinent positive or pertinent negative responses have been documented in the HPI. Review of systems. Patient denies any headache no visual acuity changes no stiff neck no chest pain or shortness of breath. She has right flank discomfort which been ongoing for a week or more. She is currently taking antibiotics for that. The patient was diagnosed with stomach ulcers by endoscopy yesterday and is on medications area patient reports she had diarrhea today. States she is drinking adequate fluids. But when she bent over she felt dizzy. She's come the hospital. Denies any neuro deficits. Denies weakness. No nausea no vomiting. Past medical problems patient denies any significant medical proms. Problems as noted above include stomach ulcers and a low hemoglobin. The patient's surgeries bilateral tubal ligation. Family history mother had colon cancer. Patient was advised that she will need regular colonoscopies because a family history. The patient denies smoking denies drinking. She reports she has ALLERGIES to peanuts and wheat. ROS Other: All systems not noted in ROS Statement are negative. Past Medical History Past Medical History: No Reported History Additional Past Medical History / Comment(s): bleeding ulcers History of Any Multi-Drug Resistant Organisms: None Reported Past Surgical History: No Surgical Hx Reported Past Psychological History: No Psychological Hx Reported Smoking Status: Former smoker Past Alcohol Use History: Occasional Past Drug Use History: None Reported General Exam - General Exam Comments Initial Comments: General: The patient is awake and alert, in no distress, and does not appear acutely ill. Here because she felt dizzy when she bent over. Current vital signs show temperature 98.0 pulse 77 story rate 16 blood pressure 135/84 with percent pulse ox on room air. Eye: Pupils are equal, round and reactive to light, extra-ocular movements are intac t; there is normal conjunctiva bilaterally. No signs of icterus. Ears, nose, mouth and throat: There are moist mucous membranes and no oral lesions. Neck: The neck is supple, there is no tenderness. Cardiovascular: There is a regular rate and rhythm. No murmur, rub or gallop is appreciated. Respiratory: Lungs are clear to auscultation, respirations are non-labored, breath sounds are equal. No wheezes, stridor, rales, or rhonchi. Gastrointestinal: Soft, non-distended, non-tender abdomen without masses or organomegaly noted. There is no rebound or guarding present. No CVA tenderness. Bowel sounds are unremarkable. Back: Right-sided flank area discomfort. Negative kidney punch. No rashes noted. Early shingles and pain from shingles was discussed. Patient will watch for rash. Denies frequency urgency or dysuria. Currently being treated with an antibiotic. Musculoskeletal: Normal ROM, no tenderness, There is no pedal edema. There is no calf tenderness or swelling. Sensation intact. Pulses equal bilaterally 2+. Neurological: CN II-XII intact, There are no obvious motor or sensory deficits. Coordination appears grossly intact. Speech is normal. Skin: Skin is warm and dry and no rashes or lesions are noted. Psychiatric: Cooperative, appropriate mood & affect, normal judgment. Limitations: no limitations Course Vital Signs 05/10/19 05/10/19 18:41 19:44 Temperature 98.0 F Pulse Rate 77 Pulse Rate [ 71 Doctor Of [facility] ] Respiratory 18 16 Rate Blood Pressure 135/84 Blood Pressure 138/86 [Left Arm Sitting] Blood Pressure 135/83 [Left Arm Standing] Blood Pressure 121/80 [Left Arm Supine] O2 Sat by Pulse 100 Oximetry Medical Decision Making - Medical Decision Making Medical decision making; this is a 49-year-old female here with her significant other. The patient was recently in hospital with a low hemoglobin. She received a transfusion. She had an EGD and colonoscopy. It was found the patient had bleeding stomach ulcers. The patient was discharged just yesterday and today felt dizzy when she bent over. Neurologically intact no other findings at this time no nausea no vomiting she did have 1 episode of diarrhea. The patient was also being treated for a kidney infection. She to continue this at home. Labs performed her white count 5 hemoglobin up to 8.8 this is increased over discharge which was 7.3 on discharge. Hematocrit 31.3 potassium 3.6 BUN 5 creatinine 0.73 with a GFR greater than 90. Glucose 108. We discussed position changing and orthostatic changes. The patient will change slowly from resting to sitting especially after having gone to the bathroom. Patient was advised increase her fluid intake. Continue with medications she was discharged on for urinary tract infection as well as iron. Patient thinks that her low back pain secondary to fibroids diagnosed yesterday. She was placed on Tylenol 3's because Tylenol was not helping. - Lab Data Result diagrams: 05/10/19 19:00 05/10/19 19:00 Lab Results 05/10/19 05/10/19 Range/Units 19:00 19:00 WBC 5.4 (3.8-10.6) k/uL RBC 4.03 (3.80-5.40) m/uL Hgb 8.8 L D (11.4-16.0) gm/dL Hct 31.3 L (34.0-46.0) % MCV 77.9 L (80.0-100.0) fL MCH 21.9 L (25.0-35.0) pg MCHC 28.1 L (31.0-37.0) g/dL RDW 17.5 H (11.5-15.5) % Plt Count 391 (150-450) k/uL Neutrophils % 61 % Lymphocytes % 25 % Monocytes % 7 % Eosinophils % 1 % Basophils % 2 % Neutrophils # 3.3 (1.3-7.7) k/uL Lymphocytes # 1.3 (1.0-4.8) k/uL Monocytes # 0.4 (0-1.0) k/uL Eosinophils # 0.1 (0-0.7) k/uL Basophils # 0.1 (0-0.2) k/uL Hypochromasia Marked Poikilocytosis Moderate Anisocytosis Slight Microcytosis Slight Sodium 139 (137-145) mmol/L Potassium 3.6 (3.5-5.1) mmol/L Chloride 107 (98-107) mmol/L Carbon Dioxide 23 (22-30) mmol/L Anion Gap 9 mmol/L BUN 5 L (7-17) mg/dL Creatinine 0.73 (0.52-1.04) mg/dL Est GFR (CKD-EPI)AfAm >90 (>60 ml/min/1.73 sqM) Est GFR (CKD-EPI)NonAf >90 (>60 ml/min/1.73 sqM) Glucose 108 H (74-99) mg/dL Calcium 9.2 (8.4-10.2) mg/dL Total Bilirubin 0.3 (0.2-1.3) mg/dL AST 21 (14-36) U/L ALT 8 L (9-52) U/L Alkaline Phosphatase 39 (38-126) U/L Total Protein 7.6 (6.3-8.2) g/dL Albumin 4.2 (3.5-5.0) g/dL Disposition Clinical Impression: Dizziness, Anemia Disposition: HOME SELF-CARE Condition: Fair Prescriptions: Acetaminophen with Codeine [Tylenol w/codeine #3] 1 tab PO Q6H PRN 3 Days #12 tab PRN Reason: Pain Is patient prescribed a controlled substance at d/c from ED?: Yes When asked, does pt state using other controlled substances?: No If prescribed controlled substance>3 days was MAPS reviewed?: No If opioid is for acute pain is fill amount 7 days or less?: Yes If Rx opioid, was Start Talking consent form obtained?: Yes Referrals: Allan Ramirez MD [Primary Care Provider] - 1-2 days Time of Disposition: 22:10
[2019-05-10 19:46] LABS: ALT 8 U/L (9-52); AST 21 U/L (14-36); African American GFR (CKD) >90 (>60 ml/min/1.73 sqM); Albumin 4.2 g/dL (3.5-5.0); Alkaline Phosphatase 39 U/L (38-126); Anion Gap 9 mmol/L; Blood Urea Nitrogen 5 mg/dL (7-17); Calcium 9.2 mg/dL (8.4-10.2); Carbon Dioxide 23 mmol/L (22-30); Chloride 107 mmol/L (98-107); Glucose 108 mg/dL (74-99); Non-African American GFR(CKD) >90 (>60 ml/min/1.73 sqM); Potassium 3.6 mmol/L (3.5-5.1); Sodium 139 mmol/L (137-145); Total Bilirubin 0.3 mg/dL (0.2-1.3); Total Protein 7.6 g/dL (6.3-8.2)
[2019-05-10 20:13] LABS: Anisocytosis Slight; Basophils # (A) 0.1 k/uL (0-0.2); Basophils % (A) 2 %; Eosinophils # (A) 0.1 k/uL (0-0.7); Eosinophils % (A) 1 %; HCT 31.3 % (34.0-46.0); Hypochromasia Marked; Lymphocytes # (A) 1.3 k/uL (1.0-4.8); Lymphocytes % (A) 25 %; MCH 21.9 pg (25.0-35.0); MCHC 28.1 g/dL (31.0-37.0); MCV 77.9 fL (80.0-100.0); Mean Platelet Volume 7.3; Microcytosis Slight; Monocytes # (A) 0.4 k/uL (0-1.0); Monocytes % (A) 7 %; Neutrophils # (A) 3.3 k/uL (1.3-7.7); Neutrophils % (A) 61 %; Platelet Count 391 k/uL (150-450); Poikilocytosis Moderate; RBC 4.03 m/uL (3.80-5.40); RDW 17.5 % (11.5-15.5); WBC 5.4 k/uL (3.8-10.6)
[2019-05-10 20:21] LABS: HGB 8.8 gm/dL (11.4-16.0)
[2019-05-10] MEDS ORDERED: ACET/COD 300 MG/30 MG STARTER PACK 6 TAB BTL PO STA (22:03)
[2019-05-10 22:30] VITALS: BP 124/86; PULSE 67; RESP 18
== END 2019-05-10 22:34 | disposition home or self-care (01) ==
LOC: EC 18:31
DX: D64.9 Anemia, unspecified (principal); N39.0 Urinary tract infection, site not specified; D21.9 Benign neoplasm of connective and other soft tissue, unspecified; M54.5 Low back pain; K25.4 Chronic or unspecified gastric ulcer with hemorrhage; R19.7 Diarrhea, unspecified; Z87.891 Personal history of nicotine dependence; Z91.010 Allergy to peanuts; Z91.018 Allergy to other foods; Z80.0 Family history of malignant neoplasm of digestive organs
CPT/HCPCS: 36415; 80053; 85025; 96360; 96361; 99284

== ENCOUNTER → 2019-05-16 | Outpatient (CLI) | payer OTHER ==
[2019-05-16 10:47] LABS: Anisocytosis Moderate; Basophils # (A) 0.1 k/uL (0-0.2); Basophils % (A) 2 %; Eosinophils # (A) 0.1 k/uL (0-0.7); Eosinophils % (A) 2 %; HCT 32.9 % (34.0-46.0); HGB 9.2 gm/dL (11.4-16.0); Hypochromasia Marked; Lymphocytes # (A) 1.4 k/uL (1.0-4.8); Lymphocytes % (A) 27 %; MCH 22.3 pg (25.0-35.0); MCHC 28.1 g/dL (31.0-37.0); MCV 79.5 fL (80.0-100.0); Microcytosis Slight; Monocytes # (A) 0.3 k/uL (0-1.0); Monocytes % (A) 6 %; Neutrophils % (A) 60 %; Platelet Count 341 k/uL (150-450); Poikilocytosis Moderate; RBC 4.14 m/uL (3.80-5.40)
[2019-05-16 20:04] LABS: % Iron Saturation 68.99 (12.00-45.00); African American GFR (CKD) 99.6 (60.0-200.0); Albumin 4.1 g/dL (3.80-4.90); Albumin/Globulin Ratio 1.86 (1.60-3.17); Anion Gap 7.3 mmol/L (4.00-12.00); Calcium 9.1 mg/dL (8.7-10.3); Carbon Dioxide 23.7 mmol/L (21.6-31.8); Chol/HDL Ratio 2.89; Ferritin 11.1 ng/mL (10.0-291.0); Globulin 2.2 g/dL (1.6-3.3); Potassium 3.9 mmol/L (3.5-5.5); Total Bilirubin 0.3 mg/dL (0.3-1.2); Total Protein 6.3 g/dL (6.2-8.2)
== END ==
LOC: LABWHC1 09:25
PROVIDERS: ATTEND Hospitalist
DX: Z00.00 Encounter for general adult medical examination without abnormal findings (principal); D50.9 Iron deficiency anemia, unspecified
CPT/HCPCS: 36415; 80053; 80061; 82607; 82728; 83036; 83540; 83550; 84443; 85025

== ENCOUNTER 2019-06-18 15:51 | Emergency (ER) | payer OTHER ==
[2019-06-18 16:14] VITALS: RESP 18; TEMP 98.4
[2019-06-18] MEDS ORDERED: SODIUM CHLORIDE 0.9% 1,000 ML IV STA (17:06)
--- NOTE | 2019-06-18 17:11 | ED ---
General Adult HPI - General Chief complaint: Dizziness Stated complaint: Light headed Time Seen by Provider: 06/18/19 16:34 Source: patient, RN notes reviewed Mode of arrival: ambulatory Limitations: no limitations - History of Present Illness Initial comments: Patient is a pleasant 49-year-old female presenting to the emergency Department with complaints of lightheadedness. Onset of symptoms was the last couple of days. Patient did have similar symptoms around a month ago with blood loss from menses. Patient states she has had heavy menses again this month, and is starting to decrease just the past day or so. Patient gets lightheaded, especia lly with upright position and movement. No spinning sensation. No weakness or confusion. Patient did need blood transfusion on previous episode. - Related Data Previous Rx's Medication Instructions Recorded Cefuroxime Axetil [Ceftin] 500 mg PO BID #10 tab 05/08/19 Ferrous Sulfate [Iron (65 MG 325 mg PO TID #90 tab 05/09/19 Elemental)] Omeprazole [PriLOSEC] 20 mg PO AC-BID #60 cap 05/09/19 Acetaminophen with Codeine 1 tab PO Q6H PRN 3 Days #12 tab 05/10/19 [Tylenol w/codeine #3] Allergies Allergy/AdvReac Type Severity Reaction Status Date / Time peanut Allergy Rash/Hives Verified 06/18/19 16:08 wheat Allergy Abdominal Verified 06/18/19 16:08 Pain Review of Systems ROS Statement: Those systems with pertinent positive or pertinent negative responses have been documented in the HPI. ROS Other: All systems not noted in ROS Statement are negative. Constitutional: Denies: fever Eyes: Denies: eye pain ENT: Denies: ear pain Respiratory: Denies: cough Cardiovascular: Denies: chest pain Endocrine: Denies: fatigue Gastrointestinal: Denies: abdominal pain Genitourinary: Reports: abnormal menses Musculoskeletal: Denies: back pain Skin: Denies: rash Neurological: Denies: weakness Past Medical History Past Medical History: No Reported History Additional Past Medical History / Comment(s): bleeding ulcers, anemia, low hgb History of Any Multi-Drug Resistant Organisms: None Reported Past Surgical History: No Surgical Hx Reported Past Psychological History: No Psychological Hx Reported Smoking Status: Former smoker Past Alcohol Use History: Occasional Past Drug Use History: None Reported General Exam Limitations: no limitations General appearance: alert, in no apparent distress Head exam: Present: atraumatic Eye exam: Present: normal appearance, PERRL ENT exam: Present: normal oropharynx Neck exam: Present: normal inspection Respiratory exam: Present: normal lung sounds bilaterally Cardiovascular Exam: Present: regular rate, normal rhythm, normal heart sounds GI/Abdominal exam: Present: soft. Absent: tenderness Extremities exam: Present: normal inspection Neurological exam: Present: alert Psychiatric exam: Present: normal affect, normal mood Skin exam: Present: normal color Course Vital Signs 06/18/19 16:08 Temperature 98.4 F Pulse Rate 86 Respiratory 18 Rate Blood Pressure 137/90 O2 Sat by Pulse 100 Oximetry EKG Findings - EKG Comments: EKG Findings:: Normal sinus rhythm 63. DC 16. QRS 76. QT 4:30. QTC 440. Normal axis. Normal QRS. No acute ST change. Medical Decision Making - Medical Decision Making Patient is reevaluated and started to feel better. Patient updated on results and need for follow-up. - Lab Data Result diagrams: 06/18/19 17:06 06/18/19 17:06 Lab Results 06/18/19 06/18/19 06/18/19 Range/Units 17:06 17:06 17:06 WBC 4.9 (3.8-10.6) k/uL RBC 3.93 (3.80-5.40) m/uL Hgb 10.0 L (11.4-16.0) gm/dL Hct 32.0 L (34.0-46.0) % MCV 81.5 (80.0-100.0) fL MCH 25.5 (25.0-35.0) pg MCHC 31.3 (31.0-37.0) g/dL RDW 20.3 H (11.5-15.5) % Plt Count 349 (150-450) k/uL Neutrophils % 61 % Lymphocytes % 31 % Monocytes % 4 % Eosinophils % 1 % Basophils % 1 % Neutrophils # 3.0 (1.3-7.7) k/uL Lymphocytes # 1.5 (1.0-4.8) k/uL Monocytes # 0.2 (0-1.0) k/uL Eosinophils # 0.1 (0-0.7) k/uL Basophils # 0.1 (0-0.2) k/uL Hypochromasia Marked Poikilocytosis Slight Anisocytosis Moderate Microcytosis Slight PT 10.4 (9.0-12.0) sec INR 1.0 (<1.2) APTT 25.3 (22.0-30.0) sec Sodium 140 (137-145) mmol/L Potassium 3.9 (3.5-5.1) mmol/L Chloride 106 (98-107) mmol/L Carbon Dioxide 27 (22-30) mmol/L Anion Gap 7 mmol/L BUN 10 (7-17) mg/dL Creatinine 0.74 (0.52-1.04) mg/dL Est GFR (CKD-EPI)AfAm >90 (>60 ml/min/1.73 sqM) Est GFR (CKD-EPI)NonAf >90 (>60 ml/min/1.73 sqM) Glucose 93 (74-99) mg/dL Calcium 9.8 (8.4-10.2) mg/dL Disposition Clinical Impression: Lightheadedness, Abnormal menses Disposition: HOME SELF-CARE Condition: Stable Instructions (If sedation given, give patient instructions): Dizziness (ED), Dyspareunia in Women (DC) Additional Instructions: Please follow-up with primary care physician and LEARNING SUPPORT SPECIALIST in the next few days for recheck. Return for increased lightheadedness, bleeding, pain, worsening symptoms or other concerns. Is patient prescribed a controlled substance at d/c from ED?: No Referrals: Allan Ramirez MD [Primary Care Provider] - 1-2 days Mera Campbell DO [Doctor of Osteopathic Medicine] - 1-2 days Time of Disposition: 18:04
[2019-06-18 17:21] LABS: Anisocytosis Moderate; Basophils # (A) 0.1 k/uL (0-0.2); Basophils % (A) 1 %; Eosinophils # (A) 0.1 k/uL (0-0.7); Eosinophils % (A) 1 %; Hypochromasia Marked; Lymphocytes # (A) 1.5 k/uL (1.0-4.8); Lymphocytes % (A) 31 %; MCH 25.5 pg (25.0-35.0); MCHC 31.3 g/dL (31.0-37.0); MCV 81.5 fL (80.0-100.0); Microcytosis Slight; Monocytes # (A) 0.2 k/uL (0-1.0); Monocytes % (A) 4 %; Neutrophils % (A) 61 %; Platelet Count 349 k/uL (150-450); Poikilocytosis Slight; RBC 3.93 m/uL (3.80-5.40); RDW 20.3 % (11.5-15.5); WBC 4.9 k/uL (3.8-10.6)
[2019-06-18 17:30] LABS: African American GFR (CKD) >90 (>60 ml/min/1.73 sqM); Anion Gap 7 mmol/L; Blood Urea Nitrogen 10 mg/dL (7-17); Calcium 9.8 mg/dL (8.4-10.2); Carbon Dioxide 27 mmol/L (22-30); Chloride 106 mmol/L (98-107); Glucose 93 mg/dL (74-99); Non-African American GFR(CKD) >90 (>60 ml/min/1.73 sqM); Partial Thromboplastin Time 25.3 sec (22.0-30.0); Potassium 3.9 mmol/L (3.5-5.1); Prothrombin Time 10.4 sec (9.0-12.0); Sodium 140 mmol/L (137-145)
[2019-06-18 18:29] VITALS: BP 123/71; PULSE 76
== END 2019-06-18 18:28 | disposition home or self-care (01) ==
LOC: EC 15:51
DX: N92.6 Irregular menstruation, unspecified (principal); R42 Dizziness and giddiness; N92.0 Excessive and frequent menstruation with regular cycle; Z87.891 Personal history of nicotine dependence; Z91.010 Allergy to peanuts; Z91.018 Allergy to other foods; Z86.2 Personal history of diseases of the blood and blood-forming organs and certain disorders involving the immune mechanism
CPT/HCPCS: 36415; 80048; 85025; 85610; 85730; 93005; 96360; 99284

== ENCOUNTER → 2019-06-18 | Outpatient (CLI) | payer OTHER ==
[2019-06-18 16:50] LABS: Anisocytosis Slight; Basophils % (A) 0 %; Eosinophils # (A) 0.1 k/uL (0-0.7); Eosinophils % (A) 2 %; HCT 29.7 % (34.0-46.0); HGB 9.2 gm/dL (11.4-16.0); Hypochromasia Marked; Lymphocytes % (A) 40 %; MCH 25.7 pg (25.0-35.0); MCHC 31.1 g/dL (31.0-37.0); MCV 82.8 fL (80.0-100.0); Mean Platelet Volume 6.5; Microcytosis Slight; Monocytes # (A) 0.2 k/uL (0-1.0); Monocytes % (A) 4 %; Neutrophils # (A) 2.6 k/uL (1.3-7.7); Neutrophils % (A) 52 %; Platelet Count 325 k/uL (150-450); Poikilocytosis Slight; RBC 3.59 m/uL (3.80-5.40); RDW 19.7 % (11.5-15.5); WBC 5.1 k/uL (3.8-10.6)
[2019-06-19 00:51] LABS: % Iron Saturation 21.43 (12.00-45.00)
== END | disposition home or self-care (01) ==
LOC: LABWHC1 15:37
PROVIDERS: ATTEND Nurse Practitioner
DX: D50.9 Iron deficiency anemia, unspecified (principal)
CPT/HCPCS: 36415; 82728; 83540; 83550; 85025

== ENCOUNTER 2019-06-20 22:04 | Emergency (ER) | payer OTHER ==
[2019-06-20] MEDS ORDERED: KETOROLAC 30 MG/ML 1 ML VIAL IVP STA (22:37)
[2019-06-20] MEDS ORDERED: SODIUM CHLORIDE 0.9% 500 ML 500 ML IV STA (22:38)
[2019-06-20] MEDS ORDERED: PROMETHAZINE INJ 25 MG in SODIUM CHLORIDE 0.9% 50 ML IVPB ONE (22:45)
--- NOTE | 2019-06-20 22:56 | ED ---
Headache HPI - General Chief Complaint: Headache Stated Complaint: Head Pain Time Seen by Provider: 06/20/19 22:06 Mode of arrival: ambulatory Limitations: no limitations - History of Present Illness Initial Comments: This patient is a 49-year-old woman presenting to be evaluated for right-sided headache. She stated that it had come on a couple of days ago, and that she had been seen here with concern that she may be anemic again. She had previously had headache associated with anemia and then required a transfusion. The patient states that she has also been having some sinus symptoms going back 1-2 weeks. Patient denies fever or chills. No neck stiffness. No neurologic symptoms. MD Complaint: headache Onset/Timin -: days(s) Onset Description: gradual Location: right, occipital, retro-orbital Severity: severe Severity scale (1-10): 8 Quality: aching Consistency: constant Improves With: nothing Worsens With: none Treatments Prior to Arrival: Acetaminophen - Related Data Home Medications Medication Instructions Recorded Confirmed Cetirizine HCl [Zyrtec] 10 mg PO DAILY 06/20/19 06/20/19 Allergies Allergy/AdvReac Type Severity Reaction Status Date / Time peanut Allergy Rash/Hives/ Verified 06/20/19 22:27 Swelling wheat AdvReac Abdominal Verified 06/20/19 22:27 Pain Review of Systems ROS Statement: Those systems with pertinent positive or pertinent negative responses have been documented in the HPI. ROS Other: All systems not noted in ROS Statement are negative. Constitutional: Denies: fever, chills Eyes: Denies: eye pain, vision change ENT: Reports: congestion. Denies: ear pain, hearing loss Respiratory: Denies: cough, dyspnea Cardiovascular: Denies: chest pain, palpitations, edema Gastrointestinal: Denies: abdominal pain, nausea, vomiting Musculoskeletal: Denies: back pain Skin: Denies: rash Neurological: Reports: as per HPI, headache. Denies: weakness, numbness, paresthesias Past Medical History Past Medical History: No Reported History Additional Past Medical History / Comment(s): bleeding ulcers, anemia, low hgb History of Any Multi-Drug Resistant Organisms: None Reported Past Surgical History: No Surgical Hx Reported Past Psychological History: No Psychological Hx Reported Smoking Status: Former smoker Past Alcohol Use History: Occasional Past Drug Use History: None Reported General Exam Limitations: no limitations General appearance: alert, in no apparent distress Head exam: Present: atraumatic, normocephalic Eye exam: Present: normal appearance, PERRL, EOMI. Absent: scleral icterus, conjunctival injection, nystagmus, periorbital swelling, periorbital tenderness ENT exam: Present: normal oropharynx, TM's normal bilaterally, normal external ear exam Neck exam: Present: normal inspection, full ROM. Absent: tenderness Neurological exam: Present: alert, oriented X3, CN II-XII intact. Absent: motor sensory deficit Skin exam: Present: warm, dry, intact, normal color. Absent: rash Course Vital Signs 06/20/19 22:05 Temperature 97.9 F Pulse Rate 75 Respiratory 16 Rate Blood Pressure 147/89 O2 Sat by Pulse 100 Oximetry Medical Decision Making - Lab Data Result diagrams: 06/20/19 22:53 06/20/19 22:53 Lab Results 06/20/19 06/20/19 Range/Units 22:53 22:53 WBC 5.4 (3.8-10.6) k/uL RBC 3.70 L (3.80-5.40) m/uL Hgb 9.3 L (11.4-16.0) gm/dL Hct 30.3 L (34.0-46.0) % MCV 82.0 (80.0-100.0) fL MCH 25.2 (25.0-35.0) pg MCHC 30.7 L (31.0-37.0) g/dL RDW 20.2 H (11.5-15.5) % Plt Count 356 (150-450) k/uL Neutrophils % 56 % Lymphocytes % 34 % Monocytes % 6 % Eosinophils % 1 % Basophils % 0 % Neutrophils # 3.0 (1.3-7.7) k/uL Lymphocytes # 1.8 (1.0-4.8) k/uL Monocytes # 0.3 (0-1.0) k/uL Eosinophils # 0.1 (0-0.7) k/uL Basophils # 0.0 (0-0.2) k/uL Hypochromasia Marked Poikilocytosis Slight Anisocytosis Moderate Microcytosis Slight Sodium 139 (137-145) mmol/L Potassium 3.8 (3.5-5.1) mmol/L Chloride 105 (98-107) mmol/L Carbon Dioxide 26 (22-30) mmol/L Anion Gap 8 mmol/L BUN 9 (7-17) mg/dL Creatinine 0.77 (0.52-1.04) mg/dL Est GFR (CKD-EPI)AfAm >90 (>60 ml/min/1.73 sqM) Est GFR (CKD-EPI)NonAf >90 (>60 ml/min/1.73 sqM) Glucose 103 H (74-99) mg/dL Calcium 9.8 (8.4-10.2) mg/dL Disposition Clinical Impression: Headache Disposition: HOME SELF-CARE Condition: Good Instructions (If sedation given, give patient instructions): Acute Headache (ED) Is patient prescribed a controlled substance at d/c from ED?: No Referrals: Allan Ramirez MD [Primary Care Provider] - 1-2 days Kei Moser MD [STAFF PHYSICIAN] - 1-2 days
--- NOTE | 2019-06-20 22:57 | CT ---
EXAMINATION TYPE: CT brain wo con DATE OF EXAM: 06/20/2019 COMPARISON: None HISTORY: Right sided headache CT DLP: 1094.40 mGycm Automated exposure control for dose reduction was used. FINDINGS: Ventricles of normal size. There is no mass effect nor midline shift. There is no sign of intracrania l hemorrhage. Calvarium is intact. There is no evidence of cerebral edema. IMPRESSION: NEGATIVE HEAD CT SCAN.
[2019-06-20 23:14] LABS: Anisocytosis Moderate; Basophils % (A) 0 %; Eosinophils # (A) 0.1 k/uL (0-0.7); Eosinophils % (A) 1 %; HCT 30.3 % (34.0-46.0); HGB 9.3 gm/dL (11.4-16.0); Hypochromasia Marked; Lymphocytes # (A) 1.8 k/uL (1.0-4.8); Lymphocytes % (A) 34 %; MCH 25.2 pg (25.0-35.0); MCHC 30.7 g/dL (31.0-37.0); Mean Platelet Volume 6.8; Microcytosis Slight; Monocytes # (A) 0.3 k/uL (0-1.0); Monocytes % (A) 6 %; Neutrophils % (A) 56 %; Platelet Count 356 k/uL (150-450); Poikilocytosis Slight; RDW 20.2 % (11.5-15.5); WBC 5.4 k/uL (3.8-10.6)
[2019-06-20 23:18] LABS: African American GFR (CKD) >90 (>60 ml/min/1.73 sqM); Anion Gap 8 mmol/L; Blood Urea Nitrogen 9 mg/dL (7-17); Calcium 9.8 mg/dL (8.4-10.2); Carbon Dioxide 26 mmol/L (22-30); Chloride 105 mmol/L (98-107); Glucose 103 mg/dL (74-99); Non-African American GFR(CKD) >90 (>60 ml/min/1.73 sqM); Potassium 3.8 mmol/L (3.5-5.1); Sodium 139 mmol/L (137-145)
[2019-06-21 00:02] VITALS: BP 136/72; PULSE 80; RESP 18; TEMP 97.6
== END 2019-06-21 00:02 | disposition home or self-care (01) ==
LOC: EC 22:04
DX: R51 Headache (principal); Z87.891 Personal history of nicotine dependence; Z91.010 Allergy to peanuts; Z91.018 Allergy to other foods; Z79.899 Other long term (current) drug therapy; Z86.2 Personal history of diseases of the blood and blood-forming organs and certain disorders involving the immune mechanism
CPT/HCPCS: 36415; 80048; 85025; 70450; 99284; 96374; 96375; J2550; J1885

== ENCOUNTER → 2019-07-01 | Outpatient (CLI) | payer OTHER ==
--- NOTE | 2019-07-02 08:40 | MM ---
Reason for exam: screening (asymptomatic). Last mammogram was performed 9 years and 9 months ago. History: Family history of breast cancer in maternal grandmother and breast cancer in mother at age 69. Physical Findings: A clinical breast exam by your physician is recommended on an annual basis and results should be correlated with mammographic findings. MG Screening Mammo w CAD Bilateral CC and MLO view(s) were taken. Prior study comparison: October 06, 2009, bilateral digital screening mammogram. January 28, 2004, bilateral screening mammogram. The breast tissue is heterogeneously dense. This may lower the sensitivity of mammography. Finding: There is a 5 mm equal density (isodense), oval mass in the outer quadrant of the right breast. ASSESSMENT: Incomplete: need additional imaging evaluation, BI-RAD 0 RECOMMENDATION: Special view mammogram of the right breast. If lesion persists on supplemental views, image directed ultrasound is recommended. [facility] will attempt to contact patient to return for supplemental views and ultrasound if indicated.
== END | disposition home or self-care (01) ==
LOC: RADMAMWWP 16:52
PROVIDERS: ATTEND Family Medicine
DX: Z12.31 Encounter for screening mammogram for malignant neoplasm of breast (principal)
CPT/HCPCS: 77067

== ENCOUNTER → 2019-07-15 | Outpatient (CLI) | payer OTHER ==
--- NOTE | 2019-07-15 11:41 | MM ---
Reason for exam: additional evaluation requested from abnormal screening. Last mammogram was performed less than 1 month ago. History: Family history of breast cancer in maternal grandmother and breast cancer in mother at age 69. Physical Findings: Nurse did not find any significant physical abnormalities on exam. MG Work Up Mamm w CAD RT Spot compression CC, spot compression MLO, and ML view(s) were taken of the right breast. Prior study comparison: July 01, 2019, bilateral MG screening mammo w CAD. October 06, 2009, bilateral digital screening mammogram. The breast tissue is extremely dense which could obscure a lesion on mammography. The area of 6mm nodularity is not as well seen with spot compression. However, the breast is extremely dense. These results were verbally communicated with the patient and result sheet given to the patient on 07/15/19. ASSESSMENT: Incomplete: need additional imaging evaluation, BI-RAD 0 RECOMMENDATION: Ultrasound of the right breast.
--- NOTE | 2019-07-15 11:42 | USB ---
Reason for exam: additional evaluation requested from abnormal screening. History: Family history of breast cancer in maternal grandmother and breast cancer in mother at age 69. US Breast Workup RT Right complete breast ultrasound includes all four quadrants, the retroareolar region and axilla. Finding demonstrates no cystic or solid lesion seen. Dense tissues throughout. These results were verbally communicated with the patient and result sheet given to the patient on 07/15/19. ASSESSMENT: Probably benign, BI-RAD 3 RECOMMENDATION: Follow-up diagnostic mammogram of the right breast in 6 months.
== END | disposition home or self-care (01) ==
LOC: RADMAMWWP 10:13
PROVIDERS: ATTEND Family Medicine
DX: R92.8 Other abnormal and inconclusive findings on diagnostic imaging of breast (principal)
CPT/HCPCS: 77065

== ENCOUNTER → 2019-08-07 | Outpatient (CLI) | payer OTHER ==
[2019-08-07 07:16] LABS: Anisocytosis Slight; Basophils # (A) 0.1 k/uL (0-0.2); Basophils % (A) 1 %; Eosinophils # (A) 0.1 k/uL (0-0.7); Eosinophils % (A) 2 %; HGB 8.4 gm/dL (11.4-16.0); Hypochromasia Marked; Lymphocytes # (A) 1.8 k/uL (1.0-4.8); Lymphocytes % (A) 33 %; MCH 24.7 pg (25.0-35.0); MCHC 29.9 g/dL (31.0-37.0); MCV 82.6 fL (80.0-100.0); Mean Platelet Volume 7.5; Microcytosis Slight; Monocytes # (A) 0.4 k/uL (0-1.0); Monocytes % (A) 6 %; Neutrophils # (A) 2.9 k/uL (1.3-7.7); Neutrophils % (A) 53 %; Platelet Count 512 k/uL (150-450); Poikilocytosis Slight; RBC 3.39 m/uL (3.80-5.40); RDW 17.4 % (11.5-15.5); WBC 5.4 k/uL (3.8-10.6)
[2019-08-07 11:38] LABS: % Iron Saturation 3.12 (12.00-45.00); Ferritin 3.6 ng/mL (10.0-291.0)
== END | disposition home or self-care (01) ==
LOC: LABWHC1 06:31
PROVIDERS: ATTEND Nurse Practitioner
DX: D50.9 Iron deficiency anemia, unspecified (principal)
CPT/HCPCS: 36415; 82728; 83540; 83550; 85025

== ENCOUNTER → 2019-10-02 | Outpatient (CLI) | payer OTHER ==
[2019-10-02 20:40] LABS: Anisocytosis Moderate; Basophils % (A) 1 %; Eosinophils # (A) 0.1 k/uL (0-0.7); Eosinophils % (A) 1 %; HCT 35.3 % (34.0-46.0); HGB 10.1 gm/dL (11.4-16.0); Hypochromasia Marked; Lymphocytes # (A) 1.6 k/uL (1.0-4.8); Lymphocytes % (A) 31 %; MCH 26.2 pg (25.0-35.0); MCHC 28.5 g/dL (31.0-37.0); Macrocytosis Slight; Mean Platelet Volume 10.3; Monocytes # (A) 0.3 k/uL (0-1.0); Monocytes % (A) 7 %; Neutrophils % (A) 58 %; Platelet Count 265 k/uL (150-450); RBC 3.83 m/uL (3.80-5.40); RDW 22.4 % (11.5-15.5); WBC 5.1 k/uL (3.8-10.6)
[2019-10-02 20:41] LABS: MCV 92.1 fL (80.0-100.0)
[2019-10-02 21:47] LABS: Poikilocytosis (M) Present
[2019-10-03 02:02] LABS: % Iron Saturation 8.36 (12.00-45.00)
[2019-10-03 02:04] LABS: Ferritin 26.2 ng/mL (10.0-291.0)
== END | disposition home or self-care (01) ==
LOC: LABWHC1 15:31
PROVIDERS: ATTEND Nurse Practitioner
DX: D50.9 Iron deficiency anemia, unspecified (principal)
CPT/HCPCS: 36415; 82728; 83540; 83550; 85025

== ENCOUNTER → 2020-03-23 | Outpatient (CLI) | payer OTHER ==
[2020-03-23 13:07] LABS: Basophils % (A) 1 %; Eosinophils # (A) 0.1 k/uL (0-0.7); Eosinophils % (A) 1 %; HCT 39.9 % (34.0-46.0); HGB 12.6 gm/dL (11.4-16.0); Lymphocytes # (A) 1.8 k/uL (1.0-4.8); Lymphocytes % (A) 23 %; MCH 31.4 pg (25.0-35.0); MCHC 31.5 g/dL (31.0-37.0); MCV 99.9 fL (80.0-100.0); Mean Platelet Volume 7.9; Monocytes # (A) 0.3 k/uL (0-1.0); Monocytes % (A) 4 %; Neutrophils # (A) 5.5 k/uL (1.3-7.7); Neutrophils % (A) 70 %; Platelet Count 261 k/uL (150-450); RBC 3.99 m/uL (3.80-5.40); RDW 12.6 % (11.5-15.5); WBC 7.8 k/uL (3.8-10.6)
[2020-03-23 13:17] LABS: African American GFR (CKD) >90 (>60 ml/min/1.73 sqM); Anion Gap 5 mmol/L; Blood Urea Nitrogen 10 mg/dL (7-17); Calcium 9.5 mg/dL (8.4-10.2); Carbon Dioxide 27 mmol/L (22-30); Chloride 104 mmol/L (98-107); Glucose 84 mg/dL (74-99); Non-African American GFR(CKD) >90 (>60 ml/min/1.73 sqM); Potassium 4.2 mmol/L (3.5-5.1); Sodium 136 mmol/L (137-145)
[2020-03-25 23:16] LABS: % Iron Saturation 27.06 (12.00-45.00)
[2020-03-25 23:25] LABS: Ferritin 24.3 ng/mL (10.0-291.0)
== END | disposition home or self-care (01) ==
LOC: LABPAT 11:30
PROVIDERS: ATTEND Obstetrics & Gynecology
DX: Z01.818 Encounter for other preprocedural examination (principal); D50.0 Iron deficiency anemia secondary to blood loss (chronic); D64.89 Other specified anemias; R53.81 Other malaise
CPT/HCPCS: 36415; 80048; 82728; 83540; 83550; 85025; 93005

== ENCOUNTER 2020-04-02 06:29 | Observation (INO) | payer OTHER ==
[2020-03-24 11:18] VITALS: BMI 26.2
--- NOTE | 2020-03-31 19:18 | P.HPOB ---
History of Present Illness H&P Date: 03/31/20 Chief Complaint: Fibroid uterus: Anemia Mallorie is a 50-year-old female who has a grossly enlarged fibroid uterus measuring approximately 14 weeks size. Both fibroids are noted on the ultrasound. She is had significant heavy vaginal bleeding that has caused her to become symptomatic and has had anemia requiring transfusion as early as last year. She is requesting permanent resolution with a hysterectomy. Her uterus is too large for a NovaSure or a Mirena IUD and since she is symptomatic with her anemia and she does have discomfort a robotic-assisted laparoscopic hysterectomy with bilateral salpingectomy possible MADELEINE possible BSO has been scheduled. Risks/benefits/alternatives to this procedure were reviewed with the patient in detail and all questions were answered for her prior to proceeding to the operative room. Risks did include but were not limited to bleeding, infection, damage to bladder including perforation damage to bowel include perforation damage to ureters and nerves vessels. Potential need for further surgeries On physical exam this is a well-developed well-nourished female whose HEENT is otherwise unremarkable. Heart regular, lungs clear, extremities without pain. Abdomen soft uterus is grossly above the pubic bone. Bowel sounds are noted. In discussing surgery with her it is also noted that she may require a bag to place the uterus in for assistance removal due to its large size. Assessment fibroid uterus with anemia and menorrhagia Plan robotic-assisted laparoscopic hysterectomy with bilateral salpingectomy possible MADELEINE and possible BSO Past Medical History Past Medical History: No Reported History, GERD/Reflux Additional Past Medical History / Comment(s): bleeding ulcers, anemia, low hgb, uterine fibroid History of Any Multi-Drug Resistant Organisms: None Reported Past Surgical History: Tubal Ligation Additional Past Surgical History / Comment(s): colonoscopy Past Anesthesia/Blood Transfusion Reactions: No Reported Reaction Additional Past Anesthesia/Blood Transfusion Reaction / Comment(s): blood transfusion 05/11 for hgb 6.5 without reaction Smoking Status: Former smoker - Past Family History Mother Family Medical History: Cancer Additional Family Medical History / Comment(s): breast and colon. maternal gma- breast cancer Medications and Allergies Home Medications Medication Instructions Recorded Confirmed Type Cetirizine HCl [Zyrtec] 10 mg PO DAILY 06/20/19 03/24/20 History Ferrous Sulfate [Iron (65 MG 1 tab PO DAILY 11/20/19 03/24/20 History Elemental)] Omeprazole 1 tab PO DAILY 11/20/19 03/24/20 History Allergies Allergy/AdvReac Type Severity Reaction Status Date / Time peanut Allergy Rash/Hives/ Verified 03/24/20 11:06 Swelling wheat AdvReac Abdominal Verified 03/24/20 11:06 Pain Exam Osteopathic Statement: *. No significant issues noted on an osteopathic structural exam other than those noted in the History and Physical/Consult. - OBG Physical Exam Breast: both: normal (no masses) Abdomen: bowel sounds normal, no diffuse tenderness, no bruit present, no guarding noted, no hepatomegaly, no splenomegaly, no mass Vulva: both: normal Vagina: normal moisture, no discharge Cervix: no lesion, no discharge Uterus: normal size, normal contour Adnexa: both: normal Anus/Rectum: normal perianal skin, no rectal mass, no hemorrhoids, heme negative
[2020-04-02] MEDS ORDERED: DEXAMETHASONE SOD PHOSPHATE 10 MG/ML 1 ML VIAL IV ONE (06:47)
[2020-04-02] MEDS ORDERED: ONDANSETRON 4 MG/2 ML VIAL IVP ONE (06:47)
[2020-04-02] MEDS: LACTATED RINGERS 1,000 ML IV SCH (07:20)
[2020-04-02] MEDS ORDERED: ROCURONIUM BROMIDE 10 MG/ML 5 ML VIAL IV ONE (09:25)
[2020-04-02] MEDS ORDERED: LIDOCAINE 1% INJ 10MG/ML (20 ML MDV) ONE (09:25)
[2020-04-02] MEDS ORDERED: PROPOFOL 10 MG/ML 20 ML VIAL IV ONE (09:25)
[2020-04-02] MEDS ORDERED: fentaNYL (PF) 50 MCG/ML 2 ML AMP ONE (09:25)
[2020-04-02] MEDS ORDERED: HYDROmorphone (PF) 1 MG/ML ONE (09:25)
[2020-04-02] MEDS ORDERED: GLYCOPYRROLATE 0.2 MG/ML 2 ML VIAL ONE (09:25)
[2020-04-02] MEDS ORDERED: NEOSTIGMINE 1 MG/ML 10 ML VIAL ONE (09:25)
[2020-04-02] MEDS ORDERED: MIDAZOLAM 2 MG/2 ML VIAL ONE (09:25)
[2020-04-02] MEDS ORDERED: LACTATED RINGERS 1,000 ML IV ONE (09:47)
[2020-04-02] MEDS ORDERED: BUPIVACAINE (PF) 0.25% 30 ML VIAL SQ ONE ×2 (10:02→11:48)
[2020-04-02] MEDS ORDERED: ONDANSETRON 4 MG/2 ML VIAL IVP PRN (11:50)
[2020-04-02] MEDS ORDERED: SIMETHICONE 80 MG CHEWABLE PO PRN (11:50)
[2020-04-02] MEDS ORDERED: HYDROcodone/APAP 5-325MG 1 EACH TAB PO PRN ×2 (11:52)
--- NOTE | 2020-04-02 12:00 | P.OP ---
Date of Procedure: 04/02/20 Preoperative Diagnosis: Fiber uterus Postoperative Diagnosis: Same Procedure(s) Performed: Robotic-assisted laparoscopic hysterectomy with bilateral salpingectomy Anesthesia: JYOTHI Surgeon: Rahul Gray Vegetable Preparer #1: Mera Campbell Estimated Blood Loss (ml): 50 IV fluids (ml): 1,000 Urine output (ml): 600 Pathology: other (Uterus, cervix and fallopian tubes) Condition: stable Disposition: floor Operative Findings: Grossly enlarged uterus with multiple fibroids Description of Procedure: Mallorie was taken to the operating room where a general anesthetic was found to be adequate. She was prepped and draped in the normal sterile fashion and placed in dorsal lithotomy position. Initially a weighted speculum was inserted into the vagina and anterior lip of the cervix identified and grasped with a single-tooth tenaculum. Uterus was then sounded to 8 cm and cup size was measured to 3.5 cm. Mara manipulator was then inserted without difficulty with's stay sutures at 3 and 9. Other incidents were then removed and a Nunez catheter was placed. Gloves were then changed and attention was turned to abdominal portion procedure where 2 mL of quarter percent Marcaine was injected approximately 2 inches above the umbilicus which is approximately 10 cm above the maximal Ascent of the uterus. Camera port was placed through this incision under direct visualization. Gas was left fully insufflate the abdomen and patient was then placed a very steep Trendelenburg position of 25. Once this was completed 2 lateral ports were placed 10 cm from the umbilicus and same line as the umbilicus and into Orser placed between the right and the left and medial ports for an personnel assistant port and a fourth arm port. Once this was fully developed robot was in and docked a cardia grasper was placed in the fourth arm third arm held a [place] grasper camera was placed the second arm and a Metzenbaum scissors placed in the first arm. Once this was completed uterus was elevated and tipped as far to the right side as possible left fallopian tube was then identified mesosalpinx tissues cauterized and cut and the flow P2 was removed. Once this was accomplished utero-ovarian ligament was identified cauterized and cut and then the mesosalpinx tissues to surrounding the cauterized and transected. Uterus was grossly very enlarged with a large anterior fibroid as well. We were able to hot decided uterus and cauterizing the broad ligament tissues down to level of that fibroid on the anterior portion of the uterus. Tissue was cauterized and transected. Once down to that level the peritoneum overlying this tissue was undermined and excised over the top of the fibroid dissecting it down to approximate cervix region. Due to inability to really visualize anything further in front of that area vascularity was cauterized as best as possible along the left lateral borders. Attention was then turned the right side and in Cerner fashion this tissues developed down to the to that fibroid area. Once this was accomplished with minimal bleeding noted the 0 camera was exchanged for a third-degree camera and he was placed in the 30 down sit we're able to see over the top of the fibroid identifying now the vascularity of the area but also the cervical area we cauterized the vascularity along the sides the uterus as best as possible to the level and once good blanching of the uterus was noted the balloon in the Mara manipulator was blown up and an anterior colpotomy was made. Now that we had a targeted area and something to follow we were able to elevate the uterus and cauterizing vascularity essentially all the way around the cervical region. Due to still limited visibility around that fibroid we did move in a counterclockwise fashion cheating head when necessary to maintain excellent hemostasis following the cup around the cervix. Once to the anterior portion of the left side of the vascularity again we were able to cauterize this tissue very well to maintain excellent hemostasis incise the tissues through the cardinal and broad ligament areas to get down to the layers below that fibroid and then we were able to transect across the blue cup finally the uterus from the vagina. Due to the large size of the uterus a Chase bag was placed into the abdomen and the uterus was placed in the Chase bag the bag was then brought down to the vaginal opening and using blunt manipulation we were able to bring the uterus into the vagina. Once this was completed due to the large size of the uterus it was removed and vaginal packing was placed to maintain pneumoperitoneum. At this point we did return to the console no bleeding is noted across the pedicles therefore incidents were exchanged for a make suture cut and a cardia grasper and a to OB lock suture was placed. This was closed in a running fashion. Once vaginal cuff was fully closed also suction irrigated with no bleeding noted from any of the pedicles. All incidents were then removed and gas was allowed to expel from the abdomen 5 deep breaths were provided during this process and patient was lowered into a [address] angle. At this point Dr. Campbell close the incision subcuticular E and I did a cystoscopy showing good flow from both ureteral jets. All incidents were then removed the remaining Local anesthetic was injected around these incisions sponge, lap, needle counts were all correct 2. She was taken to the recovery room in stable and satisfactory condition. It is noted there is some pink tinge to her urine but with the amount of manipulation was required to remove the uterus this is not surprising and will monitor through the day but should clear shortly.
[2020-04-02] MEDS ORDERED: KETOROLAC 15 MG/ML 1 ML VIAL IVP ONE (12:30)
[2020-04-02] MEDS: HYDROmorphone 0.5 MG/0.5 ML SYRINGE IVP PRN ×2 (12:32→12:59)
[2020-04-02] MEDS ORDERED: HYDROmorphone 0.5 MG/0.5 ML SYRINGE IVP ONE (12:45)
[2020-04-02] MEDS: BENZOCAINE/MENTHOL LOZENG 1 EACH LOZENGE MUCOUS MEM PRN ×2 (17:51→22:14)
[2020-04-02] MEDS: KETOROLAC 15 MG/ML 1 ML VIAL IVP PRN (17:52)
[2020-04-02] MEDS: SENNOSIDES-DOCUSATE SODIUM 1 EACH TAB PO SCH (20:03)
[2020-04-03] MEDS: KETOROLAC 15 MG/ML 1 ML VIAL IVP PRN ×2 (01:28→08:35)
[2020-04-03] MEDS: LACTATED RINGERS 1,000 ML IV SCH (06:52)
[2020-04-03 07:38] LABS: Basophils % (A) 0 %; Eosinophils % (A) 0 %; HCT 31.9 % (34.0-46.0); HGB 10.4 gm/dL (11.4-16.0); Lymphocytes # (A) 1.5 k/uL (1.0-4.8); Lymphocytes % (A) 14 %; MCH 31.9 pg (25.0-35.0); MCHC 32.5 g/dL (31.0-37.0); MCV 98.3 fL (80.0-100.0); Mean Platelet Volume 8.4; Monocytes # (A) 0.4 k/uL (0-1.0); Monocytes % (A) 4 %; Neutrophils # (A) 8.1 k/uL (1.3-7.7); Neutrophils % (A) 80 %; Platelet Count 269 k/uL (150-450); RBC 3.24 m/uL (3.80-5.40); RDW 12.6 % (11.5-15.5); WBC 10.1 k/uL (3.8-10.6)
--- NOTE | 2020-04-03 08:28 | P.DS ---
Providers Expected date of discharge: 04/03/20 Attending physician: Rahul Gray Primary care physician: [facility] [place] [facility] Course: Mallorie is doing very well post op day 1. She is voiding and ambulating and tolerating her diet. She voices no complaints. Vital signs are stable afebrile. Heart regular, lungs clear, extremities without pain. Abdomen soft and her incisions are intact. She will follow up with me in 2 weeks. Discharge instructions were thoroughly reviewed and all questions were answered for her prior to discharge. Prescription for [place] and Motrin are forwarded to the pharmacy. She is stable for discharge this time. Patient Condition at Discharge: Good Plan - Discharge Summary Discharge Rx Participant: No New Discharge Prescriptions: New Ibuprofen [Motrin] 600 mg PO Q6HR PRN #30 tab PRN Reason: Pain HYDROcodone/APAP 5-325MG [[place] 5-325] 1 tab PO Q4HR PRN #30 tab PRN Reason: Pain No Action Cetirizine HCl [Zyrtec] 10 mg PO DAILY Ferrous Sulfate [Iron (65 MG Elemental)] 1 tab PO DAILY Omeprazole 1 tab PO DAILY Discharge Medication List Cetirizine HCl [Zyrtec] 10 mg PO DAILY 06/20/19 [History] Ferrous Sulfate [Iron (65 MG Elemental)] 1 tab PO DAILY 11/20/19 [History] Omeprazole 1 tab PO DAILY 11/20/19 [History] HYDROcodone/APAP 5-325MG [[place] 5-325] 1 tab PO Q4HR PRN #30 tab 04/03/20 [Rx] Ibuprofen [Motrin] 600 mg PO Q6HR PRN #30 tab 04/03/20 [Rx] Follow up Appointment(s)/Referral(s): Rahul Gray DO [Doctor of Osteopathic Medicine] - 1 Week Patient Instructions/Handouts: Laparoscopic Hysterectomy (DC) Activity/Diet/Wound Care/Special Instructions: No heavy lifting, limit stairs and driving, and pelvic rest. If any high temperatures, heavy bleeding, or severe pain call my office. No tub baths for at least 2 weeks. Showering is fine.
[2020-04-03] MEDS: SENNOSIDES-DOCUSATE SODIUM 1 EACH TAB PO SCH (08:35)
[2020-04-03 08:39] VITALS: BP 124/81; PULSE 73; RESP 16; TEMP 98.1
== END 2020-04-03 11:30 | disposition home or self-care (01) ==
LOC: OR 06:29 → 6PED 11:55 → OR 04-03 03:08
PROVIDERS: ADMIT Obstetrics & Gynecology; ATTEND Obstetrics & Gynecology
DX: D25.2 Subserosal leiomyoma of uterus (principal); N83.8 Other noninflammatory disorders of ovary, fallopian tube and broad ligament; D64.9 Anemia, unspecified; K21.9 Gastro-esophageal reflux disease without esophagitis; K25.9 Gastric ulcer, unspecified as acute or chronic, without hemorrhage or perforation; Z87.891 Personal history of nicotine dependence; Z79.899 Other long term (current) drug therapy; Z91.010 Allergy to peanuts; Z91.018 Allergy to other foods; Z80.3 Family history of malignant neoplasm of breast; Z80.0 Family history of malignant neoplasm of digestive organs
CPT/HCPCS: 58573; S2900; 81025; 85025; 86850; 86900; 86901; 88307

== ENCOUNTER → 2021-11-24 | Outpatient (CLI) | payer OTHER ==
[2021-11-24 18:25] LABS: Basophils # (A) 0.04 X 10*3/uL (0.00-0.10); Basophils % (A) 0.6 %; Eosinophils # (A) 0.09 X 10*3/uL (0.04-0.35); Eosinophils % (A) 1.4 %; HGB 12.6 g/dL (12.0-15.0); Immature Grans, Automated 0.3 %; Lymphocytes # (A) 1.83 X 10*3/uL (0.90-5.00); Lymphocytes % (A) 28.2 %; MCH 30.9 pg (27.0-32.0); MCHC 32.3 g/dL (32.0-37.0); MCV 95.6 fL (80.0-97.0); Mean Platelet Volume 10.5 fL (9.5-12.2); Monocytes # (A) 0.41 X 10*3/uL (0.20-1.00); Monocytes % (A) 6.3 %; NRBC Per 100 WBC 0 /100 WBCS (0.0-0.0); Neutrophils # (A) 4.09 X 10*3/uL (1.80-7.70); Neutrophils % (A) 63.2 %; Platelet Count 324 X 10*3/uL (140-440); RBC 4.08 X 10*6/uL (4.10-5.20); RDW 13.8 % (11.5-14.5); WBC 6.48 X 10*3/uL (4.50-10.00)
[2021-11-24 18:57] LABS: ALT 10 U/L (8-44); AST 11 U/L (13-35); African American GFR (CKD) 103.2 (60.0-200.0); Albumin 4.4 g/dL (3.8-4.9); Albumin/Globulin Ratio 1.82 (1.60-3.17); Alkaline Phosphatase 53 U/L (41-126); BUN/Creat Ratio 14.58 Ratio (12.00-20.00); Blood Urea Nitrogen 11.2 mg/dL (9.0-27.0); Calcium 9.4 mg/dL (8.7-10.3); Carbon Dioxide 27.1 mmol/L (20.0-27.5); Chloride 104 mmol/L (96-109); Chol/HDL Ratio 2.81 Ratio; Globulin 2.4 g/dL (1.6-3.3); Glucose 91 mg/dL (70-110); LDL Cholesterol,Calculated 128.5 mg/dL (0.0-131.0); Non-African American GFR(CKD) 89.1 (60.0-200.0); Potassium 4.7 mmol/L (3.5-5.5); Sodium 139 mmol/L (135-145); Total Protein 6.8 g/dL (6.2-8.2); VLDL Calculation 16.32 mg/dL (5.00-40.00)
== END | disposition home or self-care (01) ==
LOC: LABWHC1 09:41
PROVIDERS: ATTEND Family Medicine
DX: Z00.00 Encounter for general adult medical examination without abnormal findings (principal)
CPT/HCPCS: 36415; 80053; 80061; 83036; 84443; 85025

== ENCOUNTER → 2021-12-16 | Outpatient (CLI) | payer OTHER ==
--- NOTE | 2021-12-17 14:58 | MM ---
Reason for Exam: Screening (asymptomatic). Last mammogram was performed 2 year(s) and 5 month(s) ago. Patient History: Menarche at age 13. First Full-Term at age 20. Maternal grandmother had breast cancer at or over age 50. Mother had breast cancer, age 69. Risk Values: Shivani 5 year model risk: 1.8%. NCI Lifetime model risk: 14.6%. Film Views: Bilateral CC views were taken. Bilateral MLO views were taken. Prior Study Comparison: 10/06/2009 Bilateral Screening Mammogram, [facility]. 07/01/2019 Bilateral Screening Mammogram, [facility]. 07/15/2019 Right Diagnostic Mammogram, [facility]. Tissue Density: The breast tissue is heterogeneously dense. This may lower the sensitivity of mammography. Findings: Analyzed By CAD. There is no suspicious group of microcalcifications or new suspicious mass in either breast. Overall Assessment: Benign, BI-RAD 2 Management: Screening Mammogram of both breasts in 1 year. A clinical breast exam by your physician is recommended on an annual basis and results should be correlated with mammographic findings. Electronically signed and approved by: Renard Mishra M.D. Radiologis
== END | disposition home or self-care (01) ==
LOC: RADMAMWWP 16:12
PROVIDERS: ATTEND Family Medicine
DX: Z12.31 Encounter for screening mammogram for malignant neoplasm of breast (principal); Z80.3 Family history of malignant neoplasm of breast
CPT/HCPCS: 77067

== ENCOUNTER → 2023-07-18 | Outpatient (CLI) | payer OTHER ==
--- NOTE | 2023-07-19 08:46 | MM ---
Reason for Exam: Screening (asymptomatic). Last mammogram was performed 1 year(s) and 7 month(s) ago. Patient History: Menarche at age 13. First Full-Term at age 20. Maternal grandmother had breast cancer at or over age 50. Mother had breast cancer, age 69. Risk Values: Shivani 5 year model risk: 2.0%. NCI Lifetime model risk: 14.1%. Prior Study Comparison: 07/01/2019 Bilateral Screening Mammogram, [facility]. 07/15/2019 Right Diagnostic Mammogram, [facility]. 12/16/2021 Bilateral MG screening mammo w CAD, [facility]. Tissue Density: The breast tissue is heterogeneously dense. This may lower the sensitivity of mammography. Findings: Analyzed By CAD. There is no suspicious group of microcalcifications or new suspicious mass. Overall Assessment: Negative, BI-RAD 1 Management: Screening Mammogram of both breasts in [address] [facility] will attempt to contact patient to return for supplemental views and ultrasound if indicated. Patient should continue monthly self-breast exams. A clinical breast exam by your physician is recommended on an annual basis. This exam should not preclude additional follow-up of suspicious palpable abnormalities. Note on Shivani scores and lifetime risk: 1. A Shivani score greater than 3% is considered moderate risk. If this is the case, consider specialist referral to assess eligibility for a risk reducing agent. 2. If overall lifetime risk for the development of breast cancer is 20% or higher, the patient may qualify for future screening with alternating mammogram and breast MRI. Electronically signed and approved by: Rafi Wong DO
== END | disposition home or self-care (01) ==
LOC: RADMAMWWP 14:29
PROVIDERS: ATTEND Family Medicine
DX: Z12.31 Encounter for screening mammogram for malignant neoplasm of breast (principal); Z80.3 Family history of malignant neoplasm of breast
CPT/HCPCS: 77067

== ENCOUNTER 2023-11-20 05:22 | Emergency (ER) | payer OTHER ==
[2023-11-20 05:39] VITALS: RESP 18
--- NOTE | 2023-11-20 06:55 | ED ---
General Adult HPI - General Chief complaint: Nausea/Vomiting/Diarrhea Stated complaint: Diarrhea Time Seen by Provider: 11/20/23 05:39 Source: patient, RN notes reviewed Mode of arrival: ambulatory Limitations: no limitations - History of Present Illness Initial comments: 53-year-old female presents emergency department chief complaint of diarrhea x 2 weeks. Patient states this started after taking some antibiotics for an ear infection. She states has been persistent she states some days she cannot get off the toilet as she has so much diarrhea. States it is watery in nature denies any melena, hematochezia. Patient denies any prior bowel infections. Denies any sick contacts. Patient states that she has had some hot flashes folic she had a fever. She has abdominal cramping that is worse right before she has to have a bowel movement. - Related Data Home Medications Medication Instructions Recorded Confirmed Cetirizine HCl [Zyrtec] 10 mg PO DAILY 06/20/19 04/02/20 Ferrous Sulfate [Iron (65 MG 1 tab PO DAILY 11/20/19 04/02/20 Elemental)] Omeprazole 1 tab PO DAILY 11/20/19 04/02/20 Previous Rx's Medication Instructions Recorded HYDROcodone/APAP 5-325MG [[place] 1 tab PO Q4HR PRN #30 tab 04/03/20 5-325] Ibuprofen [Motrin] 600 mg PO Q6HR PRN #30 tab 04/03/20 Vancomycin HCl [Vancocin HCl] 125 mg PO QID #40 cap 11/20/23 Allergies Allergy/AdvReac Type Severity Reaction Status Date / Time peanut Allergy Rash/Hives/ Verified 11/20/23 05:26 Swelling Pork/Porcine Containing Allergy Unknown Verified 11/20/23 05:26 Products [Pork] wheat AdvReac Abdominal Verified 11/20/23 05:26 Pain Review of Systems ROS Statement: Those systems with pertinent positive or pertinent negative responses have been documented in the HPI. ROS Other: All systems not noted in ROS Statement are negative. Past Medical History Past Medical History: No Reported History Additional Past Medical History / Comment(s): bleeding ulcers, anemia History of Any Multi-Drug Resistant Organisms: None Reported Past Surgical History: Hysterectomy, Tubal Ligation Additional Past Surgical History / Comment(s): colonoscopy Past Anesthesia/Blood Transfusion Reactions: No Reported Reaction Additional Past Anesthesia/Blood Transfusion Reaction / Comment(s): blood transfusion 10/19 for hgb 6.5 without reaction Past Psychological History: No Psychological Hx Reported Smoking Status: Former smoker Past Alcohol Use History: Occasional Past Drug Use History: None Reported - Past Family History Mother Family Medical History: Cancer Additional Family Medical History / Comment(s): breast and colon. maternal gma- breast cancer General Exam Limitations: no limitations General appearance: alert, in no apparent distress Head exam: Present: atraumatic, normocephalic, normal inspection Eye exam: Present: normal appearance, PERRL, EOMI. Absent: scleral icterus, conjunctival injection, periorbital swelling ENT exam: Present: normal exam, normal oropharynx, mucous membranes moist Neck exam: Present: normal inspection, full ROM. Absent: tenderness, meningismus, lymphadenopathy Respiratory exam: Present: normal lung sounds bilaterally. Absent: respiratory distress, wheezes, rales, rhonchi, stridor Cardiovascular Exam: Present: regular rate, normal rhythm, normal heart sounds. Absent: systolic murmur, diastolic murmur, rubs, gallop, clicks GI/Abdominal exam: Present: soft, tenderness (Mild diffuse), normal bowel sounds. Absent: distended, guarding, rebound, rigid Course Vital Signs 11/20/23 11/20/23 11/20/23 05:23 07:41 09:20 Temperature 99.8 F H 100.6 F H 99.3 F Pulse Rate 99 76 Respiratory 18 18 Rate Blood Pressure 132/76 121/72 O2 Sat by Pulse 99 99 Oximetry 11/20/23 11/20/23 11:54 12:59 Temperature 100.4 F H 99.6 F Pulse Rate 95 90 Respiratory 18 18 Rate Blood Pressure 126/80 122/76 O2 Sat by Pulse 100 97 Oximetry Medical Decision Making - Medical Decision Making Was pt. sent in by a medical professional or institution (, PA, CUSTOMER GREETER, urgent care, hospital, or long term...) When possible be specific @ -No Did you speak to anyone other than the patient for history (EMS, parent, family, police, friend...)? What history was obtained from this source @ -No Did you review nursing and triage notes (agree or disagree)? Why? @ -I reviewed and agree with nursing and triage notes Were old charts reviewed (outside hosp., previous admission, EMS record, old EKG, old radiological studies, urgent care reports/EKG's, long term records)? Report findings @ -No old charts were reviewed Differential Diagnosis (chest pain, altered mental status, abdominal pain women, abdominal pain men, vaginal bleeding, weakness, fever, dyspnea, syncope, headache, dizziness, GI bleed, back pain, seizure, CVA, palpatations, mental health, musculoskeletal)? @ -Differential Abdominal Pain Women: Appendicitis, Cholecystitis, diverticulosis, ischemic bowel, pancreatitis, hepatitis, UTI, gastroenteritis, AAA, incarcerated hernia, bowel obstruction, constipation, inflammatory bowel, hepatitis, peptic ulcer disease, splenic infarction, perforated viscus, vulvitis, ovarian torsion, PID, kidney stone, placenta abruption, this is not meant to be an all-inclusive list EKG interpreted by me (3pts min.). @ -None X-rays interpreted by me (1pt min.). @ -None done CT interpreted by me (1pt min.). @ -CT abdomen pelvis showing evidence of colitis, there are changes possible pericholecystic fluid U/S interpreted by me (1pt. min.). @ -Ultrasound shows adenomotitis of the gallbladder What testing was considered but not performed or refused? (CT, X-rays, U/S, labs)? Why? @ -None What meds were considered but not given or refused? Why? @ -None Did you discuss the management of the patient with other professionals (professionals i.e. , PA, CUSTOMER GREETER, lab, RT, psych nurse, social work therapist, pre k lead teacher, teacher, public information officer, keycase assembler)? Give summary @ -No Was smoking cessation discussed for >3mins.? @ -No Was critical care preformed (if so, how long)? @ -No Were there social determinants of health that impacted care today? How? (Homelessness, low income, unemployed, alcoholism, drug addiction, transportation, low edu. Level, literacy, decrease access to med. care, shelter, rehab)? @ -No Was there de-escalation of care discussed even if they declined (Discuss DNR or withdrawal of care, Hospice)? DNR status @ -No What co-morbidities impacted this encounter? (DM, HTN, Smoking, COPD, CAD, Cancer, CVA, ARF, Chemo, Hep., AIDS, mental health diagnosis, sleep apnea, morbid obesity)? @ -None Was patient admitted / discharged? Hospital course, mention meds given and route, prescriptions, significant lab abnormalities, going to OR and other pertinent info. @ -Discharge patient is C. difficile positive patient was started on oral vancomycin. Patient discharged in stable condition return for as discussed. Undiagnosed new problem with uncertain prognosis? @ -No Drug Therapy requiring intensive monitoring for toxicity (Heparin, Nitro, Insulin, Cardizem)? @ -No Were any procedures done? @ -No Diagnosis/symptom? @C. difficile Acute, or Chronic, or Acute on Chronic? @ -Acute Uncomplicated (without systemic symptoms) or Complicated (systemic symptoms)? @Complicated Side effects of treatment? @ -No Exacerbation, Progression, or Severe Exacerbation? @ -No Poses a threat to life or bodily function? How? (Chest pain, USA, OR, pneumonia, PE, COPD, DKA, ARF, appy, cholecystitis, CVA, Diverticulitis, Homicidal, Suicidal, threat to staff... and all critical care pts) @ -No - Lab Data Result diagrams: 11/20/23 06:33 11/20/23 06:33 Lab Results 11/20/23 11/20/23 11/20/23 Range/Units 06:33 06:33 06:33 WBC 11.8 H (3.8-10.6) k/uL RBC 4.49 (3.80-5.40) m/uL Hgb 13.2 (11.4-16.0) gm/dL Hct 41.0 (34.0-46.0) % MCV 91.2 (80.0-100.0) fL MCH 29.4 (25.0-35.0) pg MCHC 32.2 (31.0-37.0) g/dL RDW 12.2 (11.5-15.5) % Plt Count 275 (150-450) k/uL MPV 8.0 Neutrophils % 81 % Lymphocytes % 8 % Monocytes % 8 % Eosinophils % 1 % Basophils % 1 % Neutrophils # 9.6 H (1.3-7.7) k/uL Lymphocytes # 0.9 L (1.0-4.8) k/uL Monocytes # 1.0 (0-1.0) k/uL Eosinophils # 0.1 (0-0.7) k/uL Basophils # 0.1 (0-0.2) k/uL Sodium 137 (137-145) mmol/L Potassium 3.8 (3.5-5.1) mmol/L Chloride 103 (98-107) mmol/L Carbon Dioxide 26 (22-30) mmol/L Anion Gap 8 mmol/L BUN 8 (7-17) mg/dL Creatinine 0.70 (0.52-1.04) mg/dL Est GFR (CKD-EPI)AfAm >90 (>60 ml/min/1.73 sqM) Est GFR (CKD-EPI)NonAf >90 (>60 ml/min/1.73 sqM) Glucose 102 H (74-99) mg/dL Plasma Lactic Acid Conrad 0.8 (0.7-2.0) mmol/L Calcium 9.3 (8.4-10.2) mg/dL Total Bilirubin 0.5 (0.2-1.3) mg/dL AST 19 (14-36) U/L ALT 18 (4-34) U/L Alkaline Phosphatase 74 (38-126) U/L Total Protein 7.0 (6.3-8.2) g/dL Albumin 4.0 (3.5-5.0) g/dL Lipase 265 (23-300) U/L Urine Color Urine Appearance (Clear) Urine pH (5.0-8.0) Ur Specific [place] (1.001-1.035) Urine Protein (Negative) Urine Glucose (UA) (Negative) Urine Ketones (Negative) Urine Blood (Negative) Urine Nitrite (Negative) Urine Bilirubin (Negative) Urine Urobilinogen (<2.0) mg/dL Ur Leukocyte Esterase (Negative) C. difficile (EIA) Intrp (Negative) 11/20/23 11/20/23 Range/Units 08:45 10:51 WBC (3.8-10.6) k/uL RBC (3.80-5.40) m/uL Hgb (11.4-16.0) gm/dL Hct (34.0-46.0) % MCV (80.0-100.0) fL MCH (25.0-35.0) pg MCHC (31.0-37.0) g/dL RDW (11.5-15.5) % Plt Count (150-450) k/uL MPV Neutrophils % % Lymphocytes % % Monocytes % % Eosinophils % % Basophils % % Neutrophils # (1.3-7.7) k/uL Lymphocytes # (1.0-4.8) k/uL Monocytes # (0-1.0) k/uL Eosinophils # (0-0.7) k/uL Basophils # (0-0.2) k/uL Sodium (137-145) mmol/L Potassium (3.5-5.1) mmol/L Chloride (98-107) mmol/L Carbon Dioxide (22-30) mmol/L Anion Gap mmol/L BUN (7-17) mg/dL Creatinine (0.52-1.04) mg/dL Est GFR (CKD-EPI)AfAm (>60 ml/min/1.73 sqM) Est GFR (CKD-EPI)NonAf (>60 ml/min/1.73 sqM) Glucose (74-99) mg/dL Plasma Lactic Acid Conrad (0.7-2.0) mmol/L Calcium (8.4-10.2) mg/dL Total Bilirubin (0.2-1.3) mg/dL AST (14-36) U/L ALT (4-34) U/L Alkaline Phosphatase (38-126) U/L Total Protein (6.3-8.2) g/dL Albumin (3.5-5.0) g/dL Lipase (23-300) U/L Urine Color Colorless Urine Appearance Clear (Clear) Urine pH 7.5 (5.0-8.0) Ur Specific [place] 1.033 (1.001-1.035) Urine Protein Negative (Negative) Urine Glucose (UA) Negative (Negative) Urine Ketones Negative (Negative) Urine Blood Negative (Negative) Urine Nitrite Negative (Negative) Urine Bilirubin Negative (Negative) Urine Urobilinogen <2.0 (<2.0) mg/dL Ur Leukocyte Esterase Negative (Negative) C. difficile (EIA) Intrp Positive A (Negative) Disposition Clinical Impression: C. difficile colitis Disposition: HOME SELF-CARE Condition: Stable Instructions (If sedation given, give patient instructions): C. Diff (Clostridioides Difficile) Infection (ED) Additional Instructions: Please return to the Emergency Department if symptoms worsen or any other concerns. Prescriptions: Vancomycin HCl [Vancocin HCl] 125 mg PO QID #40 cap Is patient prescribed a controlled substance at d/c from ED?: No Referrals: Allan Ramirez MD [Primary Care Provider] - 1-2 days Time of Disposition: 12:48
[2023-11-20 07:03] LABS: ALT 18 U/L (4-34); AST 19 U/L (14-36); African American GFR (CKD) >90 (>60 ml/min/1.73 sqM); Alkaline Phosphatase 74 U/L (38-126); Anion Gap 8 mmol/L; Blood Urea Nitrogen 8 mg/dL (7-17); Calcium 9.3 mg/dL (8.4-10.2); Carbon Dioxide 26 mmol/L (22-30); Chloride 103 mmol/L (98-107); Glucose 102 mg/dL (74-99); Lipase 265 U/L (23-300); Non-African American GFR(CKD) >90 (>60 ml/min/1.73 sqM); Potassium 3.8 mmol/L (3.5-5.1); Sodium 137 mmol/L (137-145); Total Bilirubin 0.5 mg/dL (0.2-1.3)
[2023-11-20 07:32] LABS: Basophils # (A) 0.1 k/uL (0-0.2); Basophils % (A) 1 %; Eosinophils # (A) 0.1 k/uL (0-0.7); Eosinophils % (A) 1 %; HGB 13.2 gm/dL (11.4-16.0); Lymphocytes # (A) 0.9 k/uL (1.0-4.8); Lymphocytes % (A) 8 %; MCH 29.4 pg (25.0-35.0); MCHC 32.2 g/dL (31.0-37.0); MCV 91.2 fL (80.0-100.0); Monocytes % (A) 8 %; Neutrophils # (A) 9.6 k/uL (1.3-7.7); Neutrophils % (A) 81 %; Platelet Count 275 k/uL (150-450); RBC 4.49 m/uL (3.80-5.40); RDW 12.2 % (11.5-15.5); WBC 11.8 k/uL (3.8-10.6)
[2023-11-20] MEDS: SODIUM CHLORIDE 0.9% 500 ML 500 ML IV STA (07:36)
[2023-11-20] MEDS: LIDOCAINE 4% CREAM 5 GM TUBE TOPICAL ONE (07:36)
[2023-11-20] MEDS: SODIUM CHLORIDE 0.9% 1,000 ML IV STA (07:36)
[2023-11-20] MEDS: ACETAMINOPHEN TAB 325 MG TAB PO STA (08:20)
[2023-11-20 08:59] LABS: Appearance,Urine Clear (Clear); Bilirubin,Urine Negative (Negative); Blood,Urine Negative (Negative); Color,Urine Colorless; Glucose,Urine (UA) Negative (Negative); Ketones,Urine Negative (Negative); Leukocyte Esterase,Urine Negative (Negative); Nitrite,Urine Negative (Negative); PH, Urine 7.5 (5.0-8.0); Protein,Urine Negative (Negative); Specific Gravity,Urine 1.033 (1.001-1.035); Urobilinogen,Urine <2.0 mg/dL (<2.0)
--- NOTE | 2023-11-20 09:12 | CT ---
EXAMINATION TYPE: CT abdomen pelvis w con DATE OF EXAM: 11/20/2023 COMPARISON: 05/07/2019 HISTORY: Abdominal pain, fever, recently started antibiotic for ear infection and has had diarrhea si nce. CT DLP: 707.1 mGycm Automated exposure control for dose reduction was used. CONTRAST: CT scan of the abdomen pelvis is performed with IV Contrast, patient injected with 100 mL of Isovue 3 00. FINDINGS- LUNG BASES- No significant abnormality is appreciated. LIVER/GB- punctate hypodensity in the dome of the liver too small to characterize but likely relate d to benign cyst. There Is gallbladder wall thickening. Trace of pericholecystic fluid. No definite g allstones. PANCREAS- No gross abnormality is seen. SPLEEN- No gross abnormality is seen. ADRENALS- No gross abnormality is seen. KIDNEYS/BLADDER-no hydronephrosis or nephrolithiasis. Subcentimeter hypodensities too small to charac terize but statistically most likely on the basis of benign cysts. BOWEL- diffuse bowel wall thickening recommend correlation for colitis. LYMPH NODES- soft tissue prominence right adnexa. No additional Greater than 1cm abdominal or pelvic lymph nodes are appreciated. OSSEOUS STRUCTURES- No significant abnormality is seen. OTHER- small fat-containing periumbilical hernia. Bladder distends normally. A soft tissue prominenc e in the right adnexa image 60 may represent residual ovarian tissue or area of adenopathy. Small cys tic structure adjacent to left iliac vasculature likely related to left ovarian cyst. Correlate for p rior hysterectomy. IMPRESSION- 1. Diffuse colonic wall thickening correlate for colitis. 2. Gallbladder wall thickening with a trace of pericholecystic fluid recommend correlation with right upper quadrant ultrasound to assess for acute cholecystitis. Soft tissue prominence in the right iliac chain\adnexa. Possibly related to the right ovary or area o f adenopathy. Short-term follow-up pelvic ultrasound recommended.
--- NOTE | 2023-11-20 09:52 | US ---
EXAMINATION TYPE: US gallbladder DATE OF EXAM: 11/20/2023 COMPARISON: CT 11/20/2023 CT 05/07/2019 CLINICAL INDICATION: Female, 53 years old with history of abnormal CT; Diarrhea x 2 weeks, ?Hx gallbl adder disease TECHNIQUE: Multiple sonographic images of the right upper quadrant are obtained. FINDINGS: EXAM MEASUREMENTS: Liver Length: 14.3 cm Gallbladder Wall: 0.3 cm CBD: 0.2 cm Right Kidney: 10.1 x 4.6 x 4.5 cm PAINTER BOTTOM NOTES: Pancreas: Limited by bowel gas Liver: wnl Gallbladder: Multiple echogenic areas with ringdown seen within the gallbladder wall. Evidence for sonographic Szymanski's sign: No CBD: wnl Right Kidney: wnl IMPRESSION: Findings are most likely related to adenomyomatosis of the gallbladder. Tiny polyp or noncalcified st one not excluded. No ultrasound evidence of cholecystitis.
[2023-11-20] MEDS: KETOROLAC 15 MG/ML 1 ML VIAL IVP STA (12:25)
[2023-11-21 07:58] VITALS: BP 122/76; PULSE 90; TEMP 99.6
== END 2023-11-20 13:00 ==
LOC: EC 05:22
DX: K56.609 Unspecified intestinal obstruction, unspecified as to partial versus complete obstruction (principal); E87.5 Hyperkalemia; I48.91 Unspecified atrial fibrillation; Z87.891 Personal history of nicotine dependence
CPT/HCPCS: 36415; 80053; 83605; 83690; 85025; 81003; 87324; 76705; 74177; 99284; 96374; 96361 ×3; J1885; Q9967

== ENCOUNTER 2023-12-22 15:41 | Emergency (ER) | payer OTHER ==
[2023-12-22 15:58] VITALS: BP 136/86; PULSE 96; RESP 18; TEMP 98.7
--- NOTE | 2023-12-22 16:29 | ED ---
Nausea/Vomiting/Diarrhea HPI - General Source: patient, RN notes reviewed Mode of arrival: ambulatory Limitations: no limitations <Melany Machado - Last Filed: 12/22/23 16:27> <Che Morales - Last Filed: 12/23/23 04:24> - General Chief complaint: Nausea/Vomiting/Diarrhea Stated complaint: Diarrhea Time Seen by Provider: 12/22/23 16:27 - History of Present Illness Initial comments: Quick [id number] female with history of colitis presenting to the ER with chief complaint of blood in stool this morning. Reports she was seen on November 19 in the ER for diarrhea and was diagnosed with colitis at that time. She was given 2 weeks worth of medication she cannot remember reports she took this to completion. She reports when she finished the medication her symptoms started to return such as diarrhea and mild abdominal cramping. She reports seeing bright red blood in the toilet bowl as well as on the toilet paper when she wiped this morning. She feels as though the colitis is back. (Melany Machado) 53-year-old female presenting with chief complaint of diarrhea. States experiencing some nausea and abdominal discomfort. She states that she noticed some "pink" blood in her stool today. She previously had C. difficile back in October, states that this feels similar and she is concerned that has returned. Outside of her treatment for C. difficile she has had no other recent antibiotic usage. No localized abdominal pain. No fevers. (Che Morales) - Related Data Home Medications Medication Instructions Recorded Confirmed Cetirizine HCl [Zyrtec] 10 mg PO DAILY 06/20/19 04/02/20 Ferrous Sulfate [Iron (65 MG 1 tab PO DAILY 11/20/19 04/02/20 Elemental)] Omeprazole 1 tab PO DAILY 11/20/19 04/02/20 Previous Rx's Medication Instructions Recorded HYDROcodone/APAP 5-325MG [[place] 1 tab PO Q4HR PRN #30 tab 04/03/20 5-325] Ibuprofen [Motrin] 600 mg PO Q6HR PRN #30 tab 04/03/20 Vancomycin HCl [Vancocin HCl] 125 mg PO QID #40 cap 11/20/23 Allergies Allergy/AdvReac Type Severity Reaction Status Date / Time peanut Allergy Rash/Hives/ Verified 12/22/23 15:51 Swelling Pork/Porcine Containing Allergy Unknown Verified 12/22/23 15:51 Products [Pork] amoxicillin AdvReac Unknown Verified 12/22/23 15:51 wheat AdvReac Abdominal Verified 12/22/23 15:51 Pain Review of Systems ROS Other: All systems not noted in ROS Statement are negative. <Melany Machado - Last Filed: 12/22/23 16:27> ROS Other: All systems not noted in ROS Statement are negative. <Che Morales - Last Filed: 12/23/23 04:24> ROS Statement: Those systems with pertinent positive or pertinent negative responses have been documented in the HPI. Past Medical History Past Medical History: No Reported History Additional Past Medical History / Comment(s): bleeding ulcers, anemia History of Any Multi-Drug Resistant Organisms: None Reported Past Surgical History: Hysterectomy, Tubal Ligation Additional Past Surgical History / Comment(s): colonoscopy Past Anesthesia/Blood Transfusion Reactions: No Reported Reaction Additional Past Anesthesia/Blood Transfusion Reaction / Comment(s): blood transfusion 05/11 for hgb 6.5 without reaction Past Psychological History: No Psychological Hx Reported Smoking Status: Former smoker Past Alcohol Use History: Occasional Past Drug Use History: None Reported - Past Family History Mother Family Medical History: Cancer Additional Family Medical History / Comment(s): breast and colon. maternal gma- breast cancer <Melany Machado - Last Filed: 12/22/23 16:27> General Exam Limitations: no limitations <Melany Machado - Last Filed: 12/22/23 16:27> Limitations: no limitations General appearance: alert, in no apparent distress Head exam: Present: atraumatic, normocephalic Eye exam: Present: normal appearance, EOMI Neck exam: Present: normal inspection. Absent: meningismus Respiratory exam: Absent: respiratory distress Cardiovascular Exam: Present: regular rate GI/Abdominal exam: Present: soft. Absent: distended, tenderness, guarding, rebound, rigid Neurological exam: Present: alert, oriented X3 Psychiatric exam: Present: normal affect, normal mood Skin exam: Present: normal color <Che Morales - Last Filed: 12/23/23 04:24> - General Exam Comments Initial Comments: Visual Physical Exam Vital signs reviewed General: Well-appearing, nontoxic, no acute distress. Head: Normocephalic, atraumatic Eyes: PERRLA, EOMI ENT: Airway patent Chest: Nonlabored breathing Skin: No visual rash, normal skin tone Neuro: Alert and oriented 3 Musculoskeletal: No gross abnormalities (Melany Machado) Course Vital Signs 12/22/23 15:49 Temperature 98.7 F Pulse Rate 96 Respiratory 18 Rate Blood Pressure 136/86 O2 Sat by Pulse 99 Oximetry Medical Decision Making <CarterMelany - Last Filed: 12/22/23 16:27> - Lab Data Result diagrams: 12/22/23 18:52 12/22/23 18:52 <CarmenZanderarvin - Last Filed: 12/23/23 04:24> - Medical Decision Making I completed the quick note portion of this chart signed Melany Machado PA-C (Melany Machado) Was pt. sent in by a medical professional or institution ([facility], HISTOPATHOLOGIST, urgent care, hospital, or senior living...) When possible be specific @ -No Did you speak to anyone other than the patient for history (EMS, parent, family, police, friend...)? What history was obtained from this source @ -No Did you review nursing and triage notes (agree or disagree)? Why? @ -I reviewed and agree with nursing and triage notes Were old charts reviewed (outside hosp., previous admission, EMS record, old EKG, old radiological studies, urgent care reports/EKG's, senior living records)? Report findings @ -No old charts were reviewed Differential Diagnosis (chest pain, altered mental status, abdominal pain women, abdominal pain men, vaginal bleeding, weakness, fever, dyspnea, syncope, headache, dizziness, GI bleed, back pain, seizure, CVA, palpatations, mental health, musculoskeletal)? @ -MDM Differential Abdominal Pain Women: Appendicitis, Cholecystitis, diverticulosis, ischemic bowel, pancreatitis, hep atitis, UTI, gastroenteritis, AAA, incarcerated hernia, bowel obstruction, constipation, inflammatory bowel, hepatitis, peptic ulcer disease, splenic infarction, perforated viscus, vulvitis, ovarian torsion, PID, kidney stone, placenta abruption... This is not meant to be an all-inclusive list EKG interpreted by me (3pts min.). @ -As above X-rays interpreted by me (1pt min.). @ -None done CT interpreted by me (1pt min.). @ -None done U/S interpreted by me (1pt. min.). @ -None done What testing was considered but not performed or refused? (CT, X-rays, U/S, labs)? Why? @ -None What meds were considered but not given or refused? Why? @ -None Did you discuss the management of the patient with other professionals (professionals i.e. DrTonio, PA, HISTOPATHOLOGIST, lab, RT, psych nurse, manager social work, jigger crown pouncing machine operator, teacher, commanding officer garage, case hardener)? Give summary @ -No Was smoking cessation discussed for >3mins.? @ -No Was critical care preformed (if so, how long)? @ -No Were there social determinants of health that impacted care today? How? (Homelessness, low income, unemployed, alcoholism, drug addiction, transportation, low edu. Level, literacy, decrease access to med. care, correction, rehab)? @ -No Was there de-escalation of care discussed even if they declined (Discuss DNR or withdrawal of care, Hospice)? DNR status @ -No What co-morbidities impacted this encounter? (DM, HTN, Smoking, COPD, CAD, Cancer, CVA, ARF, Chemo, Hep., AIDS, mental health diagnosis, sleep apnea, morbid obesity)? @ -None Was patient admitted / discharged? Hospital course, mention meds given and route, prescriptions, significant lab abnormalities, going to OR and other pertinent info. @ -53-year-old female presenting with chief complaint of diarrhea and abdominal discomfort. She states that she noticed some pink blood in her stool today. History of C. difficile. History and physical exam are conducted. Lab work shows WBC 11.3. No anemia. CMP unremarkable. C. difficile testing was sent to the lab. While waiting for results the patient signed out AGAINST MEDICAL ADVICE and left. Later when the results are available to me her C. difficile testing has come back as negative. Undiagnosed new problem with uncertain prognosis? @ -No Drug Therapy requiring intensive monitoring for toxicity (Heparin, Nitro, Insulin, Cardizem)? @ -No Were any procedures done? @ -No Diagnosis/symptom? @ -Diarrhea Acute, or Chronic, or Acute on Chronic? @ -Acute Uncomplicated (without systemic symptoms) or Complicated (systemic symptoms)? @ -Uncomplicated Side effects of treatment? @ -No Exacerbation, Progression, or Severe Exacerbation? @ -No Poses a threat to life or bodily function? How? (Chest pain, USA, [place], pneumonia, PE, COPD, DKA, ARF, appy, cholecystitis, CVA, Diverticulitis, Homicidal, Suicidal, threat to staff... and all critical care pts) @ -Low likelihood (Che Morales) - Lab Data Lab Results 12/22/23 12/22/23 12/22/23 Range/Units 18:52 18:52 18:52 WBC 11.3 H (3.8-10.6) k/uL RBC 4.59 (3.80-5.40) m/uL Hgb 13.7 (11.4-16.0) gm/dL Hct 42.1 (34.0-46.0) % MCV 91.7 (80.0-100.0) fL MCH 29.8 (25.0-35.0) pg MCHC 32.5 (31.0-37.0) g/dL RDW 12.8 (11.5-15.5) % Plt Count 297 (150-450) k/uL MPV 7.7 Neutrophils % 73 % Lymphocytes % 18 % Monocytes % 5 % Eosinophils % 2 % Basophils % 1 % Neutrophils # 8.3 H (1.3-7.7) k/uL Lymphocytes # 2.1 (1.0-4.8) k/uL Monocytes # 0.5 (0-1.0) k/uL Eosinophils # 0.2 (0-0.7) k/uL Basophils # 0.1 (0-0.2) k/uL Sodium 137 (137-145) mmol/L Potassium 4.3 (3.5-5.1) mmol/L Chloride 105 (98-107) mmol/L Carbon Dioxide 28 (22-30) mmol/L Anion Gap 4 mmol/L BUN 12 (7-17) mg/dL Creatinine 0.65 (0.52-1.04) mg/dL Est GFR (CKD-EPI)AfAm >90 (>60 ml/min/1.73 sqM) Est GFR (CKD-EPI)NonAf >90 (>60 ml/min/1.73 sqM) Glucose 91 (74-99) mg/dL Plasma Lactic Acid Conrad 0.7 (0.7-2.0) mmol/L Calcium 9.8 (8.4-10.2) mg/dL Total Bilirubin 0.8 (0.2-1.3) mg/dL AST 21 (14-36) U/L ALT 16 (4-34) U/L Alkaline Phosphatase 84 (38-126) U/L Total Protein 8.0 (6.3-8.2) g/dL Albumin 4.7 (3.5-5.0) g/dL Lipase 109 (23-300) U/L Urine Color Urine Appearance (Clear) Urine pH (5.0-8.0) Ur Specific [place] (1.001-1.035) Urine Protein (Negative) Urine Glucose (UA) (Negative) Urine Ketones (Negative) Urine Blood (Negative) Urine Nitrite (Negative) Urine Bilirubin (Negative) Urine Urobilinogen (<2.0) mg/dL Ur Leukocyte Esterase (Negative) Urine RBC (0-5) /hpf Urine WBC (0-5) /hpf Ur Squamous Epith Cells (0-4) /hpf Urine Bacteria (None) /hpf Urine Mucus (None) /hpf C. difficile (EIA) Intrp (Negative) 12/22/23 12/22/23 Range/Units 19:20 19:55 WBC (3.8-10.6) k/uL RBC (3.80-5.40) m/uL Hgb (11.4-16.0) gm/dL Hct (34.0-46.0) % MCV (80.0-100.0) fL MCH (25.0-35.0) pg MCHC (31.0-37.0) g/dL RDW (11.5-15.5) % Plt Count (150-450) k/uL MPV Neutrophils % % Lymphocytes % % Monocytes % % Eosinophils % % Basophils % % Neutrophils # (1.3-7.7) k/uL Lymphocytes # (1.0-4.8) k/uL Monocytes # (0-1.0) k/uL Eosinophils # (0-0.7) k/uL Basophils # (0-0.2) k/uL Sodium (137-145) mmol/L Potassium (3.5-5.1) mmol/L Chloride (98-107) mmol/L Carbon Dioxide (22-30) mmol/L Anion Gap mmol/L BUN (7-17) mg/dL Creatinine (0.52-1.04) mg/dL Est GFR (CKD-EPI)AfAm (>60 ml/min/1.73 sqM) Est GFR (CKD-EPI)NonAf (>60 ml/min/1.73 sqM) Glucose (74-99) mg/dL Plasma Lactic Acid Conrad (0.7-2.0) mmol/L Calcium (8.4-10.2) mg/dL Total Bilirubin (0.2-1.3) mg/dL AST (14-36) U/L ALT (4-34) U/L Alkaline Phosphatase (38-126) U/L Total Protein (6.3-8.2) g/dL Albumin (3.5-5.0) g/dL Lipase (23-300) U/L Urine Color Colorless Urine Appearance Clear (Clear) Urine pH 6.5 (5.0-8.0) Ur Specific [place] 1.012 (1.001-1.035) Urine Protein Negative (Negative) Urine Glucose (UA) Negative (Negative) Urine Ketones 1+ H (Negative) Urine Blood Trace H (Negative) Urine Nitrite Negative (Negative) Urine Bilirubin Negative (Negative) Urine Urobilinogen <2.0 (<2.0) mg/dL Ur Leukocyte Esterase Negative (Negative) Urine RBC 1 (0-5) /hpf Urine WBC <1 (0-5) /hpf Ur Squamous Epith Cells 1 (0-4) /hpf Urine Bacteria Rare H (None) /hpf Urine Mucus Rare H (None) /hpf C. difficile (EIA) Intrp Negative (Negative) Disposition <Melany Machado - Last Filed: 12/22/23 16:27> <Che Morales - Last Filed: 12/23/23 04:24> Clinical Impression: Diarrhea Disposition: LEFT AGAINST MEDICAL ADVICE Condition: Undetermined Referrals: Allan Ramirez MD [Primary Care Provider] - 1-2 days
[2023-12-22 19:11] LABS: Basophils # (A) 0.1 k/uL (0-0.2); Basophils % (A) 1 %; Eosinophils # (A) 0.2 k/uL (0-0.7); Eosinophils % (A) 2 %; HCT 42.1 % (34.0-46.0); HGB 13.7 gm/dL (11.4-16.0); Lymphocytes # (A) 2.1 k/uL (1.0-4.8); Lymphocytes % (A) 18 %; MCH 29.8 pg (25.0-35.0); MCHC 32.5 g/dL (31.0-37.0); MCV 91.7 fL (80.0-100.0); Mean Platelet Volume 7.7; Monocytes # (A) 0.5 k/uL (0-1.0); Monocytes % (A) 5 %; Neutrophils # (A) 8.3 k/uL (1.3-7.7); Neutrophils % (A) 73 %; Platelet Count 297 k/uL (150-450); RBC 4.59 m/uL (3.80-5.40); RDW 12.8 % (11.5-15.5); WBC 11.3 k/uL (3.8-10.6)
[2023-12-22 19:21] LABS: ALT 16 U/L (4-34); AST 21 U/L (14-36); African American GFR (CKD) >90 (>60 ml/min/1.73 sqM); Albumin 4.7 g/dL (3.5-5.0); Alkaline Phosphatase 84 U/L (38-126); Anion Gap 4 mmol/L; Blood Urea Nitrogen 12 mg/dL (7-17); Calcium 9.8 mg/dL (8.4-10.2); Carbon Dioxide 28 mmol/L (22-30); Chloride 105 mmol/L (98-107); Glucose 91 mg/dL (74-99); Lipase 109 U/L (23-300); Non-African American GFR(CKD) >90 (>60 ml/min/1.73 sqM); Potassium 4.3 mmol/L (3.5-5.1); Sodium 137 mmol/L (137-145); Total Bilirubin 0.8 mg/dL (0.2-1.3)
[2023-12-22 19:59] LABS: Appearance,Urine Clear (Clear); Bacteria,Urine Rare /hpf; Bilirubin,Urine Negative (Negative); Blood,Urine Trace (Negative); Color,Urine Colorless; Glucose,Urine (UA) Negative (Negative); Ketones,Urine 1+ (Negative); Leukocyte Esterase,Urine Negative (Negative); Mucus,Urine Rare /hpf; Nitrite,Urine Negative (Negative); PH, Urine 6.5 (5.0-8.0); Protein,Urine Negative (Negative); RBC,Urine 1 /hpf (0-5); Specific Gravity,Urine 1.012 (1.001-1.035); Squamous Epithelial Cell,Urine 1 /hpf (0-4); Urobilinogen,Urine <2.0 mg/dL (<2.0); WBC,Urine <1 /hpf (0-5)
[2023-12-22] MEDS: ONDANSETRON 4 MG/2 ML VIAL IVP STA (20:55)
== END 2023-12-22 23:04 | disposition left against medical advice (07) ==
LOC: EC 15:41
DX: R19.7 Diarrhea, unspecified (principal); Z53.29 Procedure and treatment not carried out because of patient's decision for other reasons; Z88.0 Allergy status to penicillin; Z91.010 Allergy to peanuts; Z91.018 Allergy to other foods; Z87.891 Personal history of nicotine dependence
CPT/HCPCS: 36415; 80053; 81001; 83605; 83690; 85025; 87324; 99284

== ENCOUNTER → 2024-01-12 | Outpatient (CLI) | payer OTHER ==
[2024-01-12 15:29] LABS: Basophils # (A) 0.04 X 10*3/uL (0.00-0.10); Basophils % (A) 0.8 %; Eosinophils # (A) 0.17 X 10*3/uL (0.04-0.35); Eosinophils % (A) 3.5 %; HCT 38.6 % (37.2-46.3); HGB 12.5 g/dL (12.0-15.0); Lymphocytes # (A) 2.14 X 10*3/uL (0.90-5.00); Lymphocytes % (A) 43.5 %; MCH 29.2 pg (27.0-32.0); MCHC 32.4 g/dL (32.0-37.0); MCV 90.2 FL (80.0-97.0); Mean Platelet Volume 10.6 FL (9.5-12.2); Monocytes # (A) 0.39 X 10*3/uL (0.20-1.00); Monocytes % (A) 7.9 %; NRBC Per 100 WBC 0 X 10*3/uL (0.00-0.01); Neutrophils # (A) 2.17 X 10*3/uL (1.80-7.70); Neutrophils % (A) 44.1 %; Platelet Count 311 X 10*3/uL (140-440); RBC 4.28 X 10*6/uL (4.10-5.20); RDW 13.3 % (11.5-14.5); WBC 4.92 X 10*3/uL (4.50-10.00)
[2024-01-12 15:42] LABS: ALT 13 U/L (8-44); AST 17 U/L (13-35); Albumin 4.4 g/dL (3.8-4.9); Albumin/Globulin Ratio 1.69 Ratio (1.60-3.17); Alkaline Phosphatase 64 U/L (41-126); BUN/Creat Ratio 10.88 Ratio (12.00-20.00); Blood Urea Nitrogen 8.7 mg/dL (9.0-27.0); Calcium 10.1 mg/dL (8.7-10.3); Carbon Dioxide 26.8 mmol/L (21.6-31.8); Chloride 103 mmol/L (96-109); Chol/HDL Ratio 2.96 Ratio; Globulin 2.6 g/dL (1.6-3.3); Glucose 87 mg/dL (70-110); LDL Cholesterol,Calculated 140.8 mg/dL (0.0-131.0); Potassium 4.6 mmol/L (3.5-5.5); Sodium 141 mmol/L (135-145); Total Bilirubin 0.6 mg/dL (0.3-1.2)
== END | disposition home or self-care (01) ==
LOC: LABWHC1 10:00
PROVIDERS: ATTEND Family Medicine
DX: Z00.00 Encounter for general adult medical examination without abnormal findings (principal)
CPT/HCPCS: 36415; 80053; 80061; 83036; 84443; 85025

== ENCOUNTER → 2024-07-19 | Outpatient (CLI) | payer OTHER ==
--- NOTE | 2024-07-22 16:13 | MM ---
Reason for Exam: Screening (asymptomatic). Last screening mammogram was performed 12 month(s) ago. Patient History: Menarche at age 13. First Full-Term at age 20. Maternal grandmother had breast cancer at or over age 50. Mother had breast cancer, age 69. Risk Values: Shivani 5 year model risk: 1.7%. NCI Lifetime model risk: 9.6%. Prior Study Comparison: 07/15/2019 Right Diagnostic Mammogram, [facility]. 12/16/2021 Bilateral MG screening mammo w CAD, [facility]. 07/18/2023 Bilateral MG screening mammo w CAD, [facility]. Tissue Density: The breasts are heterogeneously dense, which may obscure small masses. Findings: Analyzed By CAD. The pattern is symmetrical. Pattern is stable. There is a new spiculated density in the upper left medial lateral oblique view may be a summation density. Compression view and left mediolateral view is recommended for additional workup. Right breast:No suspicious groups of microcalcifications, spiculated or lobular masses, architectural distortion or other secondary signs of malignancy are mammographically apparent. Overall Assessment: Incomplete: need additional imaging evaluation, BI-RAD 0 Management: Diagnostic Mammogram of the left breast. A negative mammogram report should not preclude additional follow up of suspicious palpable abnormalities. Patient should continue monthly self breast exam. A clinical breast exam by your physician is recommended on an annual basis and results should be correlated with mammographic findings. Note on Shivani scores and lifetime risk: 1. A Shivani score greater than 3% is considered moderate risk. If this is the case, consider specialist referral to assess eligibility for a risk reducing agent. 2. If overall lifetime risk for the development of breast cancer is 20% or higher, the patient may qualify for future screening with alternating mammogram and breast MRI. [facility], , 07/22/2024 4:09 PM. Electronically signed and approved by: Farzad Youssef D.O. Radiologis
== END | disposition home or self-care (01) ==
LOC: RADMAMWWP 16:08
PROVIDERS: ATTEND Family Medicine
DX: Z12.31 Encounter for screening mammogram for malignant neoplasm of breast (principal); Z80.3 Family history of malignant neoplasm of breast; R92.333 Mammographic heterogeneous density, bilateral breasts
CPT/HCPCS: 77067

== ENCOUNTER → 2024-08-02 | Outpatient (CLI) | payer OTHER ==
--- NOTE | 2024-08-02 13:51 | MM ---
Reason for Exam: Additional evaluation requested from abnormal screening. Last screening mammogram was performed less than 1 month ago. Patient History: Menarche at age 13. First Full-Term at age 20. Hysterectomy at age 49. Maternal grandmother had breast cancer at or over age 50. Mother had breast cancer, age 69. Risk Values: Shivani 5 year model risk: 1.7%. NCI Lifetime model risk: 9.6%. Prior Study Comparison: 12/16/2021 Bilateral MG screening mammo w CAD, [facility]. 07/18/2023 Bilateral MG screening mammo w CAD, [facility]. 07/19/2024 Bilateral MG screening mammo w CAD, [facility]. Tissue Density: Left: The breasts are heterogeneously dense, which may obscure small masses. Findings: Analyzed By CAD. Area of concern/asymmetry compresses out on spot compression imaging. No suspicious masses, calcifications or distortions. Finding in the posterior depth upper aspect MLO view measuring 11.7 cm from the nipple is stable back to at least 2019. Overall Assessment: Benign, BI-RAD 2 Management: Screening Mammogram of both breasts in 1 year. Results were given to the patient verbally at the time of exam. Patient should continue monthly self-breast exams. A clinical breast exam by your physician is recommended on an annual basis. This exam should not preclude additional follow-up of suspicious palpable abnormalities. Note on Shivani scores and lifetime risk: 1. A Shivani score greater than 3% is considered moderate risk. If this is the case, consider specialist referral to assess eligibility for a risk reducing agent. 2. If overall lifetime risk for the development of breast cancer is 20% or higher, the patient may qualify for future screening with alternating mammogram and breast MRI. [facility], , 08/02/2024 1:37 PM. Electronically signed and approved by: Rafi Wong DO
== END | disposition home or self-care (01) ==
LOC: RADMAMWWP 13:12
PROVIDERS: ATTEND Family Medicine
DX: R92.8 Other abnormal and inconclusive findings on diagnostic imaging of breast (principal); Z80.3 Family history of malignant neoplasm of breast; R92.332 Mammographic heterogeneous density, left breast
CPT/HCPCS: 77061; 77065

== ENCOUNTER → 2025-01-18 | Outpatient (CLI) | payer OTHER ==
[2025-01-18 14:18] LABS: Basophils # (A) 0.03 X 10*3/uL (0.00-0.10); Basophils % (A) 0.5 %; Eosinophils # (A) 0.15 X 10*3/uL (0.04-0.35); Eosinophils % (A) 2.6 %; HCT 41.2 % (37.2-46.3); HGB 13.4 g/dL (12.0-15.0); Lymphocytes % (A) 36.1 %; MCH 30.2 pg (27.0-32.0); MCHC 32.5 g/dL (32.0-37.0); Mean Platelet Volume 10.1 FL (9.5-12.2); Monocytes # (A) 0.36 X 10*3/uL (0.20-1.00); Monocytes % (A) 6.2 %; NRBC Per 100 WBC 0 X 10*3/uL (0.00-0.01); Neutrophils # (A) 3.17 X 10*3/uL (1.80-7.70); Neutrophils % (A) 54.4 %; Platelet Count 325 X 10*3/uL (140-440); RBC 4.43 X 10*6/uL (4.10-5.20); RDW 13.5 % (11.5-14.5); WBC 5.82 X 10*3/uL (4.50-10.00)
[2025-01-18 14:43] LABS: BUN/Creat Ratio 8.67 Ratio (12.00-20.00); Blood Urea Nitrogen 7.8 mg/dL (9.0-27.0); Chloride 104 mmol/L (96-109); Chol/HDL Ratio 2.92 Ratio; Glucose 93 mg/dL (70-110); LDL Cholesterol,Calculated 145.9 mg/dL (0.0-131.0); Potassium 4.4 mmol/L (3.5-5.5); Sodium 141 mmol/L (135-145); VLDL Calculation 18.56 mg/dL (5.00-40.00)
[2025-01-18 14:44] LABS: ALT 13 U/L (8-44); AST 16 U/L (13-35); Albumin 4.4 g/dL (3.8-4.9); Albumin/Globulin Ratio 1.52 Ratio (1.60-3.17); Alkaline Phosphatase 76 U/L (41-126); Calcium 9.8 mg/dL (8.7-10.3); Carbon Dioxide 26.1 mmol/L (21.6-31.8); Globulin 2.9 g/dL (1.6-3.3); Total Bilirubin 0.7 mg/dL (0.3-1.2); Total Protein 7.3 g/dL (6.2-8.2)
[2025-01-18 18:44] LABS: Follicle Stimulating Hormone 76.8 mIU/mL; Luteinizing Hormone 40.1 mIU/mL; Progesterone 0.2 ng/mL
== END | disposition home or self-care (01) ==
LOC: LABWHC1 08:10
PROVIDERS: ATTEND Family Medicine
DX: Z00.00 Encounter for general adult medical examination without abnormal findings (principal); N95.1 Menopausal and female climacteric states
CPT/HCPCS: 36415; 80053; 80061; 82626; 82671; 83001; 83002; 83036; 84144; 84270; 84402; 84403; 84443; 85025

== ENCOUNTER → 2025-02-04 | Outpatient (CLI) | payer OTHER ==
--- NOTE | 2025-02-04 18:19 | CT ---
EXAMINATION TYPE: CT heart w calcium score DATE OF EXAM: 02/04/2025 COMPARISON: None CLINICAL INDICATION: Female, 55 years old with history of I25.10 CAD; PHH, high cholesterol TECHNIQUE: Prospective Gating was used. Slice thickness: 3mm. Density threshold (HU): 130, Pixel threshold: 3, Algorithm: discrete. CT DLP: 51.[address] CTDI: 3.51 mGy Automated exposure control for dose reduction was used. FINDINGS: CT CALCIUM SCORING Coronary calcium is a marker for plaque (fatty deposits) in a blood vessel or atherosclerosis (harden ing of the arteries). The presence and amount of calcium detected in a coronary artery by the CT sca n, indicates the presence and amount of atherosclerotic plaque. These calcium deposits appear years before the development of heart disease symptoms such as chest pain and shortness of breath. A calcium score is computed for each of the coronary arteries based upon the volume and density of th e calcium deposits. This can be referred to as your calcified plaque burden. It does not correspond directly to the percentage of narrowing in the artery but does correlate with the severity of the un derlying coronary atherosclerosis. RESULTS Region: LM Calcium Score ([place]): 0 Volume (mm3): 0 Mass (g): 0 Region: RCA Calcium Score ([place]): 2.94 Volume (mm3): 6.54 Mass (g): 13.08 Region: LAD Calcium Score ([place]): .89 Volume (mm3): 2.65 Mass (g): 5.37 Region: CX Calcium Score ([place]): .69 Volume (mm3): 2.06 Mass (g): 4.13 Region: PDA Calcium Score ([place]): 0 Volume (mm3): 0 Mass (g): 0 Total: Calcium Score ([place]): 4.52 Volume (mm3): 11.29 Mass (g): 22.57 TOTAL CALCIUM SCORE: 4.52 IMPRESSION: Calcium Score: 4.52 Implication: Minimal identifable plaque. Risk of Coronary Artery Disease: Very unlikely, less than 10%. CALCIUM SCORE IMPLICATION RISK OF C ORONARY ARTERY DISEASE 0 No identifiable plaque Very low, generally less than 5% 1-10 Minimal identifiable plaque Very unlikely, less than 10% 11-100 Definite, at least mild atherosclerotic plaque Mild or m inimal coronary narrowings likely 101-400 Definite, at least moderate atherosclerotic plaque Mild coronary ar arnaud disease highly likely, significant narrowing possible 401 or Higher Extensive atherosclerotic plaque High lik elihood of at least one significant coronary narrowing [facility], , 02/04/2025 6:17 PM
== END | disposition home or self-care (01) ==
LOC: RADCTMAIN 15:47
PROVIDERS: ATTEND Family Medicine
DX: I25.10 Atherosclerotic heart disease of native coronary artery without angina pectoris (principal); E78.00 Pure hypercholesterolemia, unspecified
CPT/HCPCS: 75571